=== PATIENT | male | born 1970 | race Caucasian/White ===

== ENCOUNTER 2017-09-16 18:06 | Emergency (ER) | payer OTHER ==
[~2017-09-16] VITALS: Ht 160 cm; Wt 49.9 kg
[~2017-09-16 18:06] MED LIST: Augmentin 875-1 EACH PO; CIPR500 PO; CODACE15 PO; CYCL10 PO; DOXY100 PO; ENOX30I SC; HYDACE5 PO; IBUP800 PO; Lotrimin Ultra12 GM TP; MUPI1NAS; OXYACE5T PO; Prednisone20 MG PO; ROXICODONE5 MG PO; RXOXYACE PO; RXSULTRIDS PO; SENN187 PO; Zithromax250 MG PO; [UNRECOGNIZED DRUG - CODE] TOP
[2017-09-16 19:19] LABS: Source, Urine Clean Catch
[2017-09-16 19:21] LABS: Bilirubin, Urine Neg (Neg); Blood, Urine 1+ (Neg); Glucose Qualitative, Urine Neg (Neg); Ketones, Urine Neg (Neg); Leukocyte Esterase, Urine 3+ (Neg); Nitrite, Urine Pos (Neg); Protein, Urine Neg (Neg); Specific Gravity, Urine 1.015 (1.003-1.022); Urobilinogen, Urine NORM (Normal)
[2017-09-16 19:27] LABS: Appearance, Urine Clear (Clear); Color, Urine Yellow (P-Yellow)
[2017-09-16 19:29] LABS: Bacteria Many /hpf; Squamous Epithelial Cells Few /hpf (Few)
[2017-09-16] MEDS ORDERED: Bactrim Ds Tab1 EACH PO (19:48)
== END 2017-09-16 20:11 | disposition home or self-care (01) ==
LOC: ER 18:06
PROVIDERS: Physician Assistant
DX: N39.0 Urinary tract infection, site not specified (principal); M25.552 Pain in left hip; Z88.5 Allergy status to narcotic agent; Z79.2 Long term (current) use of antibiotics; Z87.891 Personal history of nicotine dependence
CPT/HCPCS: 81001; 87077; 87086; 87186; 96372; 99283; J1885

== ENCOUNTER 2018-10-23 17:46 | Emergency (ER) | payer OTHER ==
[~2018-10-23] VITALS: Ht 160 cm; Wt 54.4 kg
[~2018-10-23 17:46] MED LIST changes: +Bactrim Ds Tab1 EACH PO
[2018-10-23] MEDS ORDERED: Zofran8 MG PO (18:16)
== END 2018-10-23 18:35 | disposition home or self-care (01) ==
LOC: ER 17:46
DX: T52.0X1A Toxic effect of petroleum products, accidental (unintentional), initial encounter (principal); Z87.891 Personal history of nicotine dependence
CPT/HCPCS: 99284

== ENCOUNTER 2018-11-09 10:38 | Emergency (ER) | payer OTHER ==
[~2018-11-09] VITALS: Ht 172.7 cm; Wt 63.5 kg
[~2018-11-09 10:38] MED LIST changes: +Zofran8 MG PO
[2018-11-09 11:31] LABS: Source, Urine Clean Catch
[2018-11-09 11:36] LABS: Bilirubin, Urine Neg (Neg); Blood, Urine Neg (Neg); Glucose Qualitative, Urine Neg (Neg); Ketones, Urine Neg (Neg); Leukocyte Esterase, Urine 2+ (Neg); Nitrite, Urine Neg (Neg); Protein, Urine Neg (Neg); Urobilinogen, Urine NORM (Normal); pH, Urine 6.5 (5.0-8.0)
[2018-11-09 11:38] LABS: Appearance, Urine Clear (Clear); Color, Urine Yellow (P-Yellow)
[2018-11-09 11:42] LABS: Red Blood Cells, Urine Not Seen /hpf (0-2)
[2018-11-09 11:43] LABS: Squamous Epithelial Cells Few /hpf (Few)
[2018-11-09 11:44] LABS: Bacteria Few /hpf
[2018-11-09] MEDS ORDERED: CYCL10 PO (12:47)
[2018-11-09] MEDS ORDERED: Naprosyn500 MG PO (12:47)
[2018-11-09] MEDS ORDERED: Norco 7.5-3251 EACH PO (12:47)
== END 2018-11-09 13:15 | disposition home or self-care (01) ==
LOC: ER 10:38
PROVIDERS: Internal Medicine
DX: S39.012A Strain of muscle, fascia and tendon of lower back, initial encounter (principal); X58.XXXA Exposure to other specified factors, initial encounter; Z88.5 Allergy status to narcotic agent; Z87.891 Personal history of nicotine dependence
CPT/HCPCS: 81001; 87086; 96374; 96375; 96376; 99283-25; J1170; J1885; J2405

== ENCOUNTER 2019-10-11 17:52 | Inpatient (IN) | payer OTHER ==
[~2019-10-11] VITALS: Ht 160 cm; Wt 51.4 kg
[~2019-10-11 17:52] MED LIST changes: +Naprosyn500 MG PO; +Norco 7.5-3251 EACH PO
[2019-10-11 18:31] LABS: BASOPHILS ABSOLUTE AUTO 0.07 K/mm3 (0.00-0.23); BASOPHILS PERCENT AUTO 1 % (0-2); EOSINOPHILS PERCENT AUTO 5 % (0-6); Hematocrit 46.5 % (37.0-53.0); Hemoglobin 15.7 g/dL (13.5-17.5); IMMATURE GRAN ABSOLUTE AUTO 0.01 K/mm3 (0.00-0.10); IMMATURE GRAN PERCENT AUTO 0 % (0-1); LYMPHOCYTES ABSOLUTE AUTO 1.45 K/mm3 (0.84-5.20); LYMPHOCYTES PERCENT AUTO 18 % (21-46); MONOCYTES ABSOLUTE AUTO 0.74 K/mm3 (0.16-1.47); MONOCYTES PERCENT AUTO 9 % (4-13); Mean Corpuscular HGB Conc 33.8 g/dL (31.5-36.5); Mean Corpuscular Volume 92 fL (80-100); NEUTROPHILS ABSOLUTE AUTO 5.28 K/mm3 (1.96-9.15); NEUTROPHILS PERCENT AUTO 67 % (41-73); Platelet Count 257 K/mm3 (150-400); RDW Coefficient Variation 12.4 % (11.7-14.2); RDW Standard Deviation 42.2 fL (35.1-46.3); Red Blood Cell Count 5.06 M/mm3 (4.30-5.90); White Blood Cell Count 7.95 K/mm3 (4.00-11.30)
[2019-10-11 18:54] LABS: Alanine Aminotransfer (ALT/SGP 60 U/L (12-78); Albumin, Blood 4.3 g/dL (3.4-5.0); Albumin/Globulin Ratio 1.2 (0.8-1.8); Alk Phos 59 U/L (50-136); Anion Gap 2 mmol/L (6-16); Aspartate Aminotrans (AST/SGOT 34 U/L (12-37); Bilirubin, Total 0.6 mg/dL (0.1-1.0); Blood Urea Nitrogen 25 mg/dL (8-24); Bun/Creatinine Ratio 23.6 (12.0-20.0); CO2, Blood 26 mmol/L (21-32); Chloride, Blood 107 mmol/L (98-108); Creatinine, Blood 1.06 mg/dL (0.60-1.20); Globulin, Blood 3.6 g/dL (2.2-4.0); Glomerular Filtration Rate >60 (60-); Glucose, Blood 95 mg/dL (70-99); Potassium, Blood 4.2 mmol/L (3.5-5.5); Sodium, Blood 135 mmol/L (136-145); Total Protein, Blood 7.9 g/dL (6.4-8.2)
[2019-10-11 20:02] LABS: Source, Urine Clean Catch
[2019-10-11 20:06] LABS: Bilirubin, Urine Neg (Neg); Blood, Urine Neg (Neg); Glucose Qualitative, Urine Neg (Neg); Ketones, Urine Neg (Neg); Leukocyte Esterase, Urine Neg (Neg); Nitrite, Urine Neg (Neg); Protein, Urine Neg (Neg); Urobilinogen, Urine NORM (Normal)
[2019-10-11 20:12] LABS: Appearance, Urine Clear (Clear); Color, Urine Yellow (P-Yellow)
[2019-10-11 21:11] LABS: Triglycerides 105 mg/dL (30-160)
[2019-10-11 21:14] LABS: Ethanol (Alcohol), Blood, Med <3 mg/dL; Magnesium, Blood 2.4 mg/dL (1.6-2.4)
[2019-10-12 02:59] LABS: U Amphetamine Screen Not Detected; U Barbituate Screen Not Detected; U Benzodiazapine Screen Not Detected; U Buprenorphine Screen Not Detected; U Cannabinoids Screen Not Detected; U Cocaine Screen Not Detected; U Methadone Screen Not Detected; U Methamphetamine Screen Not Detected; U Opiates Screen DETECTED; U Oxycodone Screen Not Detected; U Phencyclidine Screen Not Detected; U Propoxyphene Screen Not Detected
[2019-10-12 05:00] LABS: Hematocrit 43.2 % (37.0-53.0); Hemoglobin 14.7 g/dL (13.5-17.5); Mean Corpuscular HGB 31.4 pg (26.0-34.0); Mean Corpuscular Volume 92 fL (80-100); Mean Platelet Volume 9.2 fL (9.1-12.4); Platelet Count 209 K/mm3 (150-400); RDW Coefficient Variation 12.4 % (11.7-14.2); RDW Standard Deviation 42.6 fL (35.1-46.3); Red Blood Cell Count 4.68 M/mm3 (4.30-5.90); White Blood Cell Count 6.67 K/mm3 (4.00-11.30)
[2019-10-12 05:22] LABS: Alanine Aminotransfer (ALT/SGP 50 U/L (12-78); Albumin, Blood 3.5 g/dL (3.4-5.0); Albumin/Globulin Ratio 1.1 (0.8-1.8); Alk Phos 49 U/L (50-136); Anion Gap 7 mmol/L (6-16); Aspartate Aminotrans (AST/SGOT 26 U/L (12-37); Bilirubin, Total 0.7 mg/dL (0.1-1.0); Blood Urea Nitrogen 18 mg/dL (8-24); Bun/Creatinine Ratio 18.8 (12.0-20.0); CO2, Blood 24 mmol/L (21-32); Chloride, Blood 109 mmol/L (98-108); Creatinine, Blood 0.96 mg/dL (0.60-1.20); Globulin, Blood 3.1 g/dL (2.2-4.0); Glomerular Filtration Rate >60 (60-); Glucose, Blood 90 mg/dL (70-99); Sodium, Blood 140 mmol/L (136-145); Total Protein, Blood 6.6 g/dL (6.4-8.2)
--- NOTE | 2019-10-12 06:03 | NUR ---
SHIFT SUMMARY- NEW ADMIT FROM ED. PT. A&O, SBA. ACUTE PANCREATITIS DX'S. PT. C/O ABD PAIN, MEDICATED T/O SHIFT WITH MINIMAL RELIEF. PT. ON CONT BIOX. HEART RHYTHM CHRISTIE. PT. SLEPT ON/OFF DURING THE NIGHT. NO APPARENT DISTRESS NOTED. CALL LIGHT WITHIN REACH AND SIDE RAILS UP X2. WILL CONT TO MONITOR.
--- NOTE | 2019-10-12 07:16 | NUR ---
PATIENT DID NOT EAT BREAKFAST THIS SHIFT DUE TO BEING NPO AT THIS TIME.
--- NOTE | 2019-10-12 12:49 | NUR ---
PATIENT DID NOT EAT LUNCH THIS SHIFT DUE TO BEING NPO AT THIS TIME.
--- NOTE | 2019-10-12 18:31 | NUR ---
PATIENT DID NOT EAT DINNER THIS SHIFT DUE TO BEING NPO AT THIS TIME.
--- NOTE | 2019-10-12 19:05 | NUR ---
SHIFT SUMMARY. A&OX4, SBA TO BATHRROM. PT IS PLEASANT AND COOPERATIVE. PT DENIES N/V, SOB. PT REPORTS MID ABD PAIN, PT REPORTS PAIN HAS IMPROVED THIS EVENING WHEN COMPARED TO LAST NIGHT. PT REQUIRED PAIN MEDICATION ONCE THIS SHIFT. CONTINUES WITH IV FLUIDS, TOLERATING ICE CHIPS WITHOUT ISSUE. NO NEW CHANGES OR CONCERNS.
--- NOTE | 2019-10-13 05:34 | NUR ---
SHIFT SUMMARY- PT. HAD A RESTFUL NIGHT. NO APPARENT DISTRESS NOTED. REPORTED ABD PAIN 1X, MEDICATED PER EMAR WITH GOOD EFFECT. PT. RESTING HR IN THE LOW 40'S LAST NIGHT, PT. ASYPTOMATIC AND BP WNL. PROVIDER PATO MARTIN NOTIFIED. ORDER FOR 12 LEAD EKG OBTAINED. PER HOSPITALIST INSTRUCTED TO CONT TO MONITOR IF SINUS. RESULTS OF EKG SINUS CHRISTIE. CONTINOUS BIOX REMAINS IN PLACE. PT. REPORTS APPETITE RETURNING, DENIED ANY OTHER NEEDS DURING THE NIGHT. PT. APPEARED TO HAVE RESTED COMFORTABLY IN BED. IV FLUIDS INFUSING. CALL LIGHT WITHIN REACH AND SIDE RAILS UP X2. WILL CONT TO MONITOR.
--- NOTE | 2019-10-13 18:45 | NUR ---
SHIFT SUMMARY. PT REPORTS PAIN IS MORE MILD THIS AM, PT DID REPORT INCREASED PAIN WITH LUNCH AND HE RECOGNIZED TO SLOW DOWN WITH MEAL. WEARING APPAREL SHAKER CONSULTED TODAY FOR EDUCATON. FULL LIQUID DIET STARTED THIS AM. PT MEDICATED FOR PAIN WITH GOOD EFFECT. NO N/V, SOB. NO OTHER CHANGES OR CONCERNS.
--- NOTE | 2019-10-14 05:57 | NUR ---
SHIFT SUMMARY- PT. PLEASANT AND COOPERTIVE WITH CARE. RESTED COMFORTABLY T/O THE NIGHT. NO APPARENT DISTRESS NOTED. PT. TOLERATING FULL LIQUID DIET AND ABD PAIN IMPROVING. DENIED ANY NEEDS T/O THE SHIFT. CALL LIGHT WITHIN REACH AND SIDE RAILS UP X2. WILL CONT TO MONITOR.
[2019-10-14] MEDS ORDERED: TRAM50 PO (10:15)
[2019-10-14] MEDS ORDERED: ONDA4ODT MM (10:15)
--- NOTE | 2019-10-14 13:43 | NUR ---
SUMMARY/DISCHARGE PT DISCHARGED TO HOME, PT VERBALIZED UNDERSTANDING OF DISCHARGE INSTRUCTIONS REGARDING MEDS, FOLLOW UP AND DIET, PT TAKEN OUT SAFELY VIA WHEELCHAIR
== END 2019-10-14 12:59 | disposition home or self-care (01) | DRG 440 ==
LOC: ER 17:52 → MEDS 22:35 → ENPENDDIS 10-14 10:00 → MEDS 10-14 12:59
PROVIDERS: Emergency Medicine; Nurse Practitioner Acute Care; ADMIT Internal Medicine
DX: K85.90 Acute pancreatitis without necrosis or infection, unspecified (principal); Z96.642 Presence of left artificial hip joint; Z87.891 Personal history of nicotine dependence; G40.909 Epilepsy, unspecified, not intractable, without status epilepticus; F10.20 Alcohol dependence, uncomplicated; K29.80 Duodenitis without bleeding; Y90.0 Blood alcohol level of less than 20 mg/100 ml
CPT/HCPCS: 36415; 74176; 80053; 81003; 83690; 83735; 84478; 85025; 85027; 93005; 93010; 94762; 96374; 96375; 99285-25; C9113; G0480; J1170; J1650; J2405; J3010; J7030; J7120

== ENCOUNTER 2020-05-07 19:00 | Emergency (ER) | payer OTHER ==
[~2020-05-07] VITALS: Ht 162.6 cm; Wt 54.4 kg
[~2020-05-07 19:00] MED LIST changes: +ONDA4ODT MM; +TRAM50 PO
[2020-05-07 19:36] LABS: BASOPHILS ABSOLUTE AUTO 0.07 K/mm3 (0.00-0.23); BASOPHILS PERCENT AUTO 1 % (0-2); EOSINOPHILS ABSOLUTE AUTO 0.33 K/mm3 (0.00-0.68); EOSINOPHILS PERCENT AUTO 6 % (0-6); Hematocrit 46.8 % (37.0-53.0); Hemoglobin 15.8 g/dL (13.5-17.5); IMMATURE GRAN ABSOLUTE AUTO 0.01 K/mm3 (0.00-0.10); IMMATURE GRAN PERCENT AUTO 0 % (0-1); LYMPHOCYTES ABSOLUTE AUTO 1.93 K/mm3 (0.84-5.20); LYMPHOCYTES PERCENT AUTO 37 % (21-46); MONOCYTES ABSOLUTE AUTO 0.64 K/mm3 (0.16-1.47); MONOCYTES PERCENT AUTO 12 % (4-13); Mean Corpuscular HGB 30.8 pg (26.0-34.0); Mean Corpuscular HGB Conc 33.8 g/dL (31.5-36.5); Mean Corpuscular Volume 91 fL (80-100); Mean Platelet Volume 8.8 fL (9.1-12.4); NEUTROPHILS ABSOLUTE AUTO 2.29 K/mm3 (1.96-9.15); NEUTROPHILS PERCENT AUTO 44 % (41-73); Platelet Count 270 K/mm3 (150-400); RDW Coefficient Variation 11.7 % (11.7-14.2); RDW Standard Deviation 39.3 fL (35.1-46.3); Red Blood Cell Count 5.13 M/mm3 (4.30-5.90); White Blood Cell Count 5.27 K/mm3 (4.00-11.30)
[2020-05-07 19:51] LABS: Alanine Aminotransfer (ALT/SGP 37 U/L (12-78); Albumin, Blood 4.1 g/dL (3.4-5.0); Albumin/Globulin Ratio 1.2 (0.8-1.8); Alk Phos 70 U/L (50-136); Anion Gap 5 mmol/L (6-16); Aspartate Aminotrans (AST/SGOT 22 U/L (12-37); Bilirubin, Total 0.6 mg/dL (0.1-1.0); Blood Urea Nitrogen 19 mg/dL (8-24); Bun/Creatinine Ratio 16.8 (12.0-20.0); CO2, Blood 29 mmol/L (21-32); Calcium, Blood 9.1 mg/dL (8.5-10.1); Chloride, Blood 106 mmol/L (98-108); Creatinine, Blood 1.13 mg/dL (0.60-1.20); Globulin, Blood 3.5 g/dL (2.2-4.0); Glomerular Filtration Rate >60 (60-); Glucose, Blood 85 mg/dL (70-99); Potassium, Blood 3.8 mmol/L (3.5-5.5); Sodium, Blood 140 mmol/L (136-145); Total Protein, Blood 7.6 g/dL (6.4-8.2); Troponin I <0.015 ng/mL (0.000-0.040)
[2020-05-07 20:52] LABS: Influenza A, PCR Negative (NEGATIVE); Influenza B, PCR Negative (NEGATIVE); Resp Syncytial Virus, PCR Negative (NEGATIVE); SARS-Cov-2 (COVID-19) PCR, MMC Negative (NEGATIVE)
== END 2020-05-07 22:03 | disposition home or self-care (01) ==
LOC: ER 19:00
PROVIDERS: Emergency Medicine
DX: J06.9 Acute upper respiratory infection, unspecified (principal); N18.9 Chronic kidney disease, unspecified; Z20.828 Contact with and (suspected) exposure to other viral communicable diseases; Z88.5 Allergy status to narcotic agent; Z87.891 Personal history of nicotine dependence
CPT/HCPCS: 0241U; 36415; 71045; 80053; 83735; 84145; 84484; 85025; 93005; 93010; 99284-25

== ENCOUNTER 2020-07-04 12:48 | Emergency (ER) | payer OTHER ==
[~2020-07-04] VITALS: Ht 160 cm; Wt 52.2 kg
[2020-07-04 13:19] LABS: BASOPHILS ABSOLUTE AUTO 0.06 K/mm3 (0.00-0.23); BASOPHILS PERCENT AUTO 1 % (0-2); EOSINOPHILS ABSOLUTE AUTO 0.22 K/mm3 (0.00-0.68); EOSINOPHILS PERCENT AUTO 5 % (0-6); Hemoglobin 16.2 g/dL (13.5-17.5); IMMATURE GRAN ABSOLUTE AUTO 0.03 K/mm3 (0.00-0.10); IMMATURE GRAN PERCENT AUTO 1 % (0-1); LYMPHOCYTES ABSOLUTE AUTO 1.16 K/mm3 (0.84-5.20); LYMPHOCYTES PERCENT AUTO 25 % (21-46); MONOCYTES ABSOLUTE AUTO 0.56 K/mm3 (0.16-1.47); MONOCYTES PERCENT AUTO 12 % (4-13); Mean Corpuscular HGB 30.5 pg (26.0-34.0); Mean Corpuscular HGB Conc 33.8 g/dL (31.5-36.5); Mean Corpuscular Volume 90 fL (80-100); Mean Platelet Volume 8.9 fL (9.1-12.4); NEUTROPHILS ABSOLUTE AUTO 2.56 K/mm3 (1.96-9.15); NEUTROPHILS PERCENT AUTO 56 % (41-73); Platelet Count 269 K/mm3 (150-400); RDW Coefficient Variation 11.9 % (11.7-14.2); RDW Standard Deviation 39.5 fL (35.1-46.3); Red Blood Cell Count 5.31 M/mm3 (4.30-5.90); White Blood Cell Count 4.59 K/mm3 (4.00-11.30)
[2020-07-04 13:38] LABS: Alanine Aminotransfer (ALT/SGP 49 U/L (12-78); Albumin, Blood 4.3 g/dL (3.4-5.0); Albumin/Globulin Ratio 1.2 (0.8-1.8); Alk Phos 58 U/L (50-136); Anion Gap 11 mmol/L (6-16); Aspartate Aminotrans (AST/SGOT 22 U/L (12-37); Bilirubin, Total 0.7 mg/dL (0.1-1.0); Blood Urea Nitrogen 14 mg/dL (8-24); Bun/Creatinine Ratio 14.7 (12.0-20.0); CO2, Blood 24 mmol/L (21-32); Calcium, Blood 8.9 mg/dL (8.5-10.1); Chloride, Blood 104 mmol/L (98-108); Creatinine, Blood 0.95 mg/dL (0.60-1.20); Globulin, Blood 3.6 g/dL (2.2-4.0); Glomerular Filtration Rate >60 (60-); Glucose, Blood 101 mg/dL (70-99); Potassium, Blood 3.9 mmol/L (3.5-5.5); Sodium, Blood 139 mmol/L (136-145); Total Protein, Blood 7.9 g/dL (6.4-8.2); Troponin I <0.015 ng/mL (0.000-0.040)
[2020-08-15] MEDS ORDERED: VICODIN PO (08:48)
[2020-08-15] MEDS ORDERED: ONDA4 PO (08:49)
[2021-01-03] MEDS ORDERED: METO10 PO (21:08)
[2021-01-03] MEDS ORDERED: AMOCLA875 PO (21:08)
== END 2020-07-04 15:38 | disposition home or self-care (01) ==
LOC: ER 12:48
PROVIDERS: Physician Assistant
DX: R07.89 Other chest pain (principal); Z88.5 Allergy status to narcotic agent; Z87.19 Personal history of other diseases of the digestive system
CPT/HCPCS: 71046; 80053; 83690; 84484; 85025; 93005; 93010; 96374; 99285-25; J1885

== ENCOUNTER 2020-08-06 21:07 | Emergency (ER) | payer OTHER ==
[~2020-08-06] VITALS: Ht 162.6 cm; Wt 52.2 kg
[2020-08-06 21:39] LABS: Source, Urine Clean Catch
[2020-08-06 21:46] LABS: BASOPHILS ABSOLUTE AUTO 0.09 K/mm3 (0.00-0.23); BASOPHILS PERCENT AUTO 2 % (0-2); EOSINOPHILS ABSOLUTE AUTO 0.13 K/mm3 (0.00-0.68); EOSINOPHILS PERCENT AUTO 2 % (0-6); Hematocrit 47.6 % (37.0-53.0); Hemoglobin 16.4 g/dL (13.5-17.5); IMMATURE GRAN ABSOLUTE AUTO 0.03 K/mm3 (0.00-0.10); IMMATURE GRAN PERCENT AUTO 1 % (0-1); LYMPHOCYTES ABSOLUTE AUTO 1.48 K/mm3 (0.84-5.20); LYMPHOCYTES PERCENT AUTO 25 % (21-46); MONOCYTES ABSOLUTE AUTO 0.71 K/mm3 (0.16-1.47); MONOCYTES PERCENT AUTO 12 % (4-13); Mean Corpuscular HGB 30.9 pg (26.0-34.0); Mean Corpuscular HGB Conc 34.5 g/dL (31.5-36.5); Mean Corpuscular Volume 90 fL (80-100); Mean Platelet Volume 8.9 fL (9.1-12.4); NEUTROPHILS ABSOLUTE AUTO 3.54 K/mm3 (1.96-9.15); NEUTROPHILS PERCENT AUTO 59 % (41-73); Platelet Count 299 K/mm3 (150-400); RDW Coefficient Variation 11.8 % (11.7-14.2); RDW Standard Deviation 38.9 fL (35.1-46.3); Red Blood Cell Count 5.31 M/mm3 (4.30-5.90); White Blood Cell Count 5.98 K/mm3 (4.00-11.30)
[2020-08-06 21:47] LABS: Bilirubin, Urine Neg (Neg); Blood, Urine Neg (Neg); Glucose Qualitative, Urine Neg (Neg); Ketones, Urine Neg (Neg); Leukocyte Esterase, Urine 1+ (Neg); Nitrite, Urine Neg (Neg); Protein, Urine Neg (Neg); Urobilinogen, Urine NORM (Normal)
[2020-08-06 21:48] LABS: Appearance, Urine Clear (Clear); Color, Urine Yellow (P-Yellow)
[2020-08-06 22:00] LABS: Red Blood Cells, Urine 0-2 /hpf (0-2); Squamous Epithelial Cells Not Seen /hpf (Few)
[2020-08-06 22:01] LABS: Alanine Aminotransfer (ALT/SGP 61 U/L (12-78); Albumin, Blood 4.5 g/dL (3.4-5.0); Albumin/Globulin Ratio 1.2 (0.8-1.8); Alk Phos 61 U/L (50-136); Anion Gap 8 mmol/L (6-16); Aspartate Aminotrans (AST/SGOT 22 U/L (12-37); Bacteria Many /hpf; Bilirubin, Total 0.5 mg/dL (0.1-1.0); Blood Urea Nitrogen 18 mg/dL (8-24); Bun/Creatinine Ratio 15.8 (12.0-20.0); CO2, Blood 27 mmol/L (21-32); Calcium, Blood 9.9 mg/dL (8.5-10.1); Chloride, Blood 105 mmol/L (98-108); Creatinine, Blood 1.14 mg/dL (0.60-1.20); Globulin, Blood 3.8 g/dL (2.2-4.0); Glomerular Filtration Rate >60 (60-); Glucose, Blood 99 mg/dL (70-99); Potassium, Blood 4.2 mmol/L (3.5-5.5); Sodium, Blood 140 mmol/L (136-145); Total Protein, Blood 8.3 g/dL (6.4-8.2)
[2020-08-06 22:22] LABS: Ethanol (Alcohol), Blood, Med <3 mg/dL
[2020-08-15] MEDS ORDERED: VICODIN PO (08:48)
[2020-08-15] MEDS ORDERED: ONDA4 PO (08:49)
[2021-01-03] MEDS ORDERED: METO10 PO (21:08)
[2021-01-03] MEDS ORDERED: AMOCLA875 PO (21:08)
== END 2020-08-06 23:19 | disposition home or self-care (01) ==
LOC: ER 21:07
PROVIDERS: Physician Assistant
DX: R10.9 Unspecified abdominal pain (principal); Z88.5 Allergy status to narcotic agent; Z87.891 Personal history of nicotine dependence
CPT/HCPCS: 36415; 74176; 80053; 81001; 83690; 85025; 87077; 87086; 87186; 96361; 96374; 96375; 99284-25; A9270; G0480; J1170; J2405; J7030

== ENCOUNTER 2020-08-22 06:48 | Day surgery (SDC) | payer OTHER ==
[~2020-08-22] VITALS: Ht 160 cm; Wt 53.3 kg
[~2020-08-22 06:48] MED LIST changes: +ONDA4 PO; +VICODIN PO
[2020-08-22] MEDS ORDERED: OMEP20ER PO (07:11)
[2021-01-03] MEDS ORDERED: AMOCLA875 PO (21:08)
[2021-01-03] MEDS ORDERED: METO10 PO (21:08)
== END 2020-08-22 08:28 | disposition home or self-care (01) ==
LOC: ORSCSDS 06:48
PROVIDERS: Student in an Organized Health Care Education/Training Program
PROC: 0DB68ZX Excision of Stomach, Via Natural or Artificial Opening Endoscopic, Diagnostic (ICD-10-PCS; principal; 2020-08-22 08:00)
PROC: 0DB48ZX Excision of Esophagogastric Junction, Via Natural or Artificial Opening Endoscopic, Diagnostic (ICD-10-PCS; principal; 2020-08-22 08:00)
DX: R10.13 Epigastric pain (principal); R19.7 Diarrhea, unspecified; R56.9 Unspecified convulsions; E78.5 Hyperlipidemia, unspecified; Z87.891 Personal history of nicotine dependence; Z79.899 Other long term (current) drug therapy
CPT/HCPCS: 88305; 88342; J0330; J0461; J2405; J2704; J7120

== ENCOUNTER 2021-01-01 18:51 | Emergency (ER) | payer OTHER ==
[~2021-01-01] VITALS: Ht 160 cm; Wt 52.2 kg
[~2021-01-01 18:51] MED LIST changes: +OMEP20ER PO
[2021-01-01 19:42] LABS: BASOPHILS ABSOLUTE AUTO 0.02 K/mm3 (0.00-0.23); BASOPHILS PERCENT AUTO 1 % (0-2); EOSINOPHILS ABSOLUTE AUTO 0.08 K/mm3 (0.00-0.68); EOSINOPHILS PERCENT AUTO 3 % (0-6); Hematocrit 49.4 % (37.0-53.0); Hemoglobin 16.8 g/dL (13.5-17.5); IMMATURE GRAN ABSOLUTE AUTO 0.01 K/mm3 (0.00-0.10); IMMATURE GRAN PERCENT AUTO 0 % (0-1); LYMPHOCYTES ABSOLUTE AUTO 0.73 K/mm3 (0.84-5.20); LYMPHOCYTES PERCENT AUTO 23 % (21-46); MONOCYTES ABSOLUTE AUTO 0.49 K/mm3 (0.16-1.47); MONOCYTES PERCENT AUTO 16 % (4-13); Mean Corpuscular HGB 30.9 pg (26.0-34.0); Mean Corpuscular Volume 91 fL (80-100); Mean Platelet Volume 8.8 fL (9.1-12.4); NEUTROPHILS ABSOLUTE AUTO 1.84 K/mm3 (1.96-9.15); NEUTROPHILS PERCENT AUTO 58 % (41-73); Platelet Count 204 K/mm3 (150-400); RDW Coefficient Variation 12.1 % (11.7-14.2); RDW Standard Deviation 40.7 fL (35.1-46.3); Red Blood Cell Count 5.44 M/mm3 (4.30-5.90); White Blood Cell Count 3.17 K/mm3 (4.00-11.30)
[2021-01-01 19:45] LABS: Source, Urine Clean Catch
[2021-01-01 19:52] LABS: Albumin/Globulin Ratio 0.9 (0.8-1.8); Bilirubin, Total 0.7 mg/dL (0.1-1.0); Bun/Creatinine Ratio 12.4 (12.0-20.0); Calcium, Blood 9.2 mg/dL (8.5-10.1); Creatinine, Blood 1.29 mg/dL (0.60-1.20); Globulin, Blood 4.4 g/dL (2.2-4.0); Potassium, Blood 4.1 mmol/L (3.5-5.5); Total Protein, Blood 8.4 g/dL (6.4-8.2)
[2021-01-01 19:56] LABS: Bilirubin, Urine Neg (Neg); Blood, Urine Neg (Neg); Color, Urine Yellow (P-Yellow); Glucose Qualitative, Urine Neg (Neg); Ketones, Urine 3+ (Neg); Leukocyte Esterase, Urine 2+ (Neg); Nitrite, Urine Neg (Neg); Protein, Urine 2+ (Neg); Urobilinogen, Urine NORM (Normal)
[2021-01-01 20:13] LABS: Amorphous Light (0-Heavy); Appearance, Urine Hazy (Clear); Bacteria Mod /hpf; Mucus Mod (0-Heavy); Red Blood Cells, Urine Not Seen /hpf (0-2); Squamous Epithelial Cells Rare /hpf (Few)
[2021-01-01] MEDS ORDERED: TRIDERM28.4 GM TOP (20:51)
[2021-01-01] MEDS ORDERED: SUCRALFATE1 G7 PO (20:51)
[2021-01-01] MEDS ORDERED: OMEP20ER PO (20:51)
[2021-01-02] MEDS ORDERED: PROM25 PO (00:33)
[2021-01-02] MEDS ORDERED: Bactrim Ds Tab1 EACH PO (00:33)
[2021-01-03] MEDS ORDERED: AMOCLA875 PO (21:08)
[2021-01-03] MEDS ORDERED: METO10 PO (21:08)
== END 2021-01-02 01:06 | disposition home or self-care (01) ==
LOC: ER 18:51
PROVIDERS: Emergency Medicine
DX: U07.1 COVID-19 (principal); Z79.899 Other long term (current) drug therapy
CPT/HCPCS: 36415; 74177; 80053; 81001; 83690; 85025; 87077; 87086; 87186; 96374-59; 96375; 99284-25; A9270; J1170; J2405; J7030; Q9967

== ENCOUNTER 2021-01-03 17:56 | Emergency (ER) | payer OTHER | END 2021-01-03 22:05 | disposition home or self-care (01) | LOC: ER 17:56 | DX: U07.1 COVID-19 (principal); E86.0 Dehydration; N39.0 Urinary tract infection, site not specified; Z88.5 Allergy status to narcotic agent; Z79.899 Other long term (current) drug therapy ==

== ENCOUNTER 2021-05-06 10:26 | Emergency (ER) | payer OTHER ==
[~2021-05-06] VITALS: Ht 157.5 cm; Wt 68.0 kg
[~2021-05-06 10:26] MED LIST changes: +AMOCLA875 PO; +METO10 PO; +PROM25 PO; +SUCRALFATE1 G7 PO; +TRIDERM28.4 GM TOP
[2021-05-06] MEDS ORDERED: OCEAN104 ML (12:20)
[2021-05-06] MEDS ORDERED: ONDA4ODT MM (12:20)
[2021-05-06] MEDS ORDERED: Flonase 0.05% N16 GM (12:20)
== END 2021-05-06 12:38 | disposition home or self-care (01) ==
LOC: ER 10:26
DX: S10.86XA Insect bite of other specified part of neck, initial encounter (principal); J32.9 Chronic sinusitis, unspecified; B97.89 Other viral agents as the cause of diseases classified elsewhere; G40.909 Epilepsy, unspecified, not intractable, without status epilepticus; Z88.5 Allergy status to narcotic agent; Z79.899 Other long term (current) drug therapy; W57.XXXA Bitten or stung by nonvenomous insect and other nonvenomous arthropods, initial encounter
CPT/HCPCS: 99281; A9270

== ENCOUNTER 2021-07-24 20:02 | Inpatient (IN) | payer OTHER ==
[~2021-07-24] VITALS: Ht 170.2 cm; Wt 52.1 kg
[~2021-07-24 20:02] MED LIST changes: +Flonase 0.05% N16 GM; +METPRE4DP PO; +OCEAN104 ML; +Robaxin750 MG PO
[2021-07-24 20:28] LABS: BASOPHILS ABSOLUTE AUTO 0.07 K/mm3 (0.00-0.23); BASOPHILS PERCENT AUTO 1 % (0-2); EOSINOPHILS ABSOLUTE AUTO 0.26 K/mm3 (0.00-0.68); EOSINOPHILS PERCENT AUTO 4 % (0-6); Hematocrit 46.3 % (37.0-53.0); Hemoglobin 15.6 g/dL (13.5-17.5); IMMATURE GRAN ABSOLUTE AUTO 0.02 K/mm3 (0.00-0.10); IMMATURE GRAN PERCENT AUTO 0 % (0-1); LYMPHOCYTES ABSOLUTE AUTO 2.08 K/mm3 (0.84-5.20); LYMPHOCYTES PERCENT AUTO 33 % (21-46); MONOCYTES ABSOLUTE AUTO 0.64 K/mm3 (0.16-1.47); MONOCYTES PERCENT AUTO 10 % (4-13); Mean Corpuscular HGB 30.8 pg (26.0-34.0); Mean Corpuscular HGB Conc 33.7 g/dL (31.5-36.5); Mean Corpuscular Volume 91 fL (80-100); Mean Platelet Volume 8.5 fL (9.1-12.4); NEUTROPHILS PERCENT AUTO 52 % (41-73); Platelet Count 352 K/mm3 (150-400); RDW Coefficient Variation 11.9 % (11.7-14.2); RDW Standard Deviation 39.5 fL (35.1-46.3); Red Blood Cell Count 5.07 M/mm3 (4.30-5.90); White Blood Cell Count 6.37 K/mm3 (4.00-11.30)
[2021-07-24 20:47] LABS: Albumin/Globulin Ratio 1.1 (0.8-1.8); Bilirubin, Total 0.4 mg/dL (0.1-1.0); Bun/Creatinine Ratio 11.9 (12.0-20.0); Calcium, Blood 8.6 mg/dL (8.5-10.1); Creatinine, Blood 1.35 mg/dL (0.60-1.20); Globulin, Blood 3.6 g/dL (2.2-4.0); Potassium, Blood 3.5 mmol/L (3.5-5.5); Total Protein, Blood 7.6 g/dL (6.4-8.2)
[2021-07-25 06:43] LABS: U Amphetamine Screen Not Detected; U Barbituate Screen Not Detected; U Benzodiazapine Screen DETECTED; U Buprenorphine Screen Not Detected; U Cannabinoids Screen Not Detected; U Cocaine Screen Not Detected; U Methadone Screen Not Detected; U Methamphetamine Screen Not Detected; U Opiates Screen Not Detected; U Oxycodone Screen Not Detected; U Phencyclidine Screen Not Detected; U Propoxyphene Screen Not Detected
[2021-07-25 08:36] LABS: BASOPHILS ABSOLUTE AUTO 0.07 K/mm3 (0.00-0.23); BASOPHILS PERCENT AUTO 1 % (0-2); EOSINOPHILS ABSOLUTE AUTO 0.27 K/mm3 (0.00-0.68); EOSINOPHILS PERCENT AUTO 4 % (0-6); Hematocrit 40.3 % (37.0-53.0); Hemoglobin 13.5 g/dL (13.5-17.5); IMMATURE GRAN ABSOLUTE AUTO 0.03 K/mm3 (0.00-0.10); IMMATURE GRAN PERCENT AUTO 1 % (0-1); LYMPHOCYTES ABSOLUTE AUTO 1.36 K/mm3 (0.84-5.20); LYMPHOCYTES PERCENT AUTO 22 % (21-46); MONOCYTES ABSOLUTE AUTO 0.68 K/mm3 (0.16-1.47); MONOCYTES PERCENT AUTO 11 % (4-13); Mean Corpuscular HGB 31.2 pg (26.0-34.0); Mean Corpuscular HGB Conc 33.5 g/dL (31.5-36.5); Mean Corpuscular Volume 93 fL (80-100); Mean Platelet Volume 8.9 fL (9.1-12.4); NEUTROPHILS ABSOLUTE AUTO 3.84 K/mm3 (1.96-9.15); NEUTROPHILS PERCENT AUTO 61 % (41-73); Platelet Count 284 K/mm3 (150-400); RDW Standard Deviation 41.5 fL (35.1-46.3); Red Blood Cell Count 4.33 M/mm3 (4.30-5.90); White Blood Cell Count 6.25 K/mm3 (4.00-11.30)
[2021-07-25 08:51] LABS: Alanine Aminotransfer (ALT/SGP 26 U/L (12-78); Albumin/Globulin Ratio 1.1 (0.8-1.8); Alk Phos 45 U/L (50-136); Anion Gap 4 mmol/L (6-16); Aspartate Aminotrans (AST/SGOT 11 U/L (12-37); Bilirubin, Total 0.6 mg/dL (0.1-1.0); Blood Urea Nitrogen 14 mg/dL (8-24); Bun/Creatinine Ratio 11.4 (12.0-20.0); CO2, Blood 24 mmol/L (21-32); Calcium, Blood 7.8 mg/dL (8.5-10.1); Chloride, Blood 115 mmol/L (98-108); Creatinine, Blood 1.23 mg/dL (0.60-1.20); Globulin, Blood 2.8 g/dL (2.2-4.0); Glomerular Filtration Rate >60 (60-); Glucose, Blood 94 mg/dL (70-99); Potassium, Blood 4.1 mmol/L (3.5-5.5); Sodium, Blood 143 mmol/L (136-145); Total Protein, Blood 5.8 g/dL (6.4-8.2)
--- NOTE | 2021-07-25 18:18 | NUR ---
PT SUMMARY: PT ARRIVED IN THE ROOM FROM ED THIS MORNING REPORT RECEIVED FROM ANNEL JIM, PT ALERT AND ORIENTED X3 ABLE TO CONVERSE STILL A LITTLE DROWSY FROM BENZOS GIVEN IN THE ED BUT IS ABLE TO ANSWER QUESTIONS. NO SEIZURE EPISODE NOTED THIS SHIFT PT HAS BEEN RESTING IN BED MOST OF THE SHIFT, ATE MEALS WITH NO ISSUES. EEG AND MRI DONE TODAY AWAITING FOR RESULTS. VITALS HRR WAS SINUS CHRISTIE 50-60'S HRR AND BP TRENDING DOWN MOSTLY WHEN THE PT IS ASLEEP, BP SYSTOLIC 70-90'S IL OF NS BOLUS WAS GIVEN PT STAYED 90-110'S ON THE SYSTOLIC AFTER THE BOLUS, PT C/O PAIN ON THE LEFT HIP WHEN MOVED PT STATED HE HAD A FALL A WEEK AGO FELL FROM THE ROOF AND WAS IN THE HOSPITAL NO INTERVENTION DONE ON THE HIP PROVIDERS ARE AWARE, ALSO HAS HAD CHEST PAIN IN THE PAST TROPONIN ORDERED AND WAS NEGATIVE, DIDNT C/O ANY CHEST PAIN FOR THE SHIFT. PT USES THE URINAL FOR VOIDING. SATS ABOVE 98% ONRA, AFEBRILE. NO OTHER ISSUES REPORTED FOR THE SHIFT, WILL REPORT TO ONCOMING SHIFT
--- NOTE | 2021-07-25 19:52 | NUR ---
1924 PATIENT SPEAKING ON PHONE WITH FAMILY WHEN THE PHONE CALL ENDED PATIENT TOOK A DRINK OF COFFEE, BEGAN COUGHING AND TELEPHONE ANSWERING SERVICE OPERATOR WENT INTO ROOM. TELEPHONE ANSWERING SERVICE OPERATOR FOUND PATIENT TO BE RIGID AND LEANING ALMOST OUT OF BED. THIS RN WENT TO GET SUCTION SET UP, MACHINE TAPER NOTIFIED AND AT BEDSIDE. PATIENT IN RIGID, MOANING STATE FOR 2-3 MINUTES WITH NOTED TREMORS IN ALL EXTREMETIES. EYES FIXED FORWARD. PT PRESENTING WITH SEIZURE LIKE SYMPTOMS. EMAR ORDER FOR 1-3MG ATIVAN FOR ETOH WITHDRAWAL SYMPTOMS PRESENT. 2MG ATIVAN GIVEN AT 1929 PER MACHINE TAPER JUAN DIEGO. SEIZURE ACTIVITY CEASED AT 1930. BP AND OTHER VITALS STABLE, CBG 92. AFTER ATIVAN GIVEN, PATIENT ABLE TO STATE WHAT BUILDING HE IS IN AND WHAT CITY HE IS IN BUT IS SLOW TO RESPOND. PATIENT ABLE TO SCAN AND FOLLOW WITH EYES. DR. EWING CALLED AND GIVEN UPDATE, ORDERS TO GIVE IV KEPPRA EARLY. REPEAT VITALS Q15 UNTIL PATIENT BACK TO BASELINE. PATIENT MENTATION IMPROVING.
--- NOTE | 2021-07-26 04:30 | NUR ---
UPDATE 2099 - DR. EWING NOTIFIED OF PATIENT'S BP TRENDING DOWN, LOW 80s SYSTOLIC. SEE FLOWSHEET. ORDER RECIEVED FOR NS @ 100 mls/hr. BP CHECKED Q1 HOUR. 0430 - CALL PLACED TO DR. EWING WITH UPDATE THAT PATIENT IS CONTINUING TO HAVE SOFT BPs T/O SHIFT WITH LOWEST SYSTOLIC MID 70s. NEW ORDER RECIEVED FOR NS @ 150 mls/hr. NO CHANGES IN PATIENT'S MENTATION. PATIENT IS SLEEPY BUT WAKES TO VERBAL STIMULI AND CAN ANSWER QUESTIONS APPROPRIATLEY.
[2021-07-26 06:09] LABS: Alanine Aminotransfer (ALT/SGP 28 U/L (12-78); Albumin, Blood 3.2 g/dL (3.4-5.0); Albumin/Globulin Ratio 1.2 (0.8-1.8); Alk Phos 46 U/L (50-136); Anion Gap 5 mmol/L (6-16); Aspartate Aminotrans (AST/SGOT 12 U/L (12-37); Bilirubin, Total 0.8 mg/dL (0.1-1.0); Blood Urea Nitrogen 12 mg/dL (8-24); Bun/Creatinine Ratio 10.2 (12.0-20.0); CO2, Blood 25 mmol/L (21-32); Calcium, Blood 8.3 mg/dL (8.5-10.1); Chloride, Blood 111 mmol/L (98-108); Creatinine, Blood 1.18 mg/dL (0.60-1.20); Globulin, Blood 2.7 g/dL (2.2-4.0); Glomerular Filtration Rate >60 (60-); Glucose, Blood 95 mg/dL (70-99); Potassium, Blood 4.1 mmol/L (3.5-5.5); Sodium, Blood 141 mmol/L (136-145); Total Protein, Blood 5.9 g/dL (6.4-8.2)
--- NOTE | 2021-07-26 06:19 | NUR ---
SHIFT SUMMARY PATIENT ALERT AND ORIENTED BUT DROWSY T/O SHIFT. WAKES TO VERBAL STIMULI AND ANSWERS QUESTIONS APPROPRIATLEY. NO MORE EPISODES OF SEIZURE ACTIVITY NOTED SINCE START OF SHIFT, SEE PREVIOUS NOTE. SOFT BPs AND HR CHRISTIE FOR MAJORITY OF SHIFT WHILE PATIENT HAS BEEN SLEEPING. BP/HR DOES INCREASE WHEN PATIENT IS AWAKE. NS INFUSING, SEE PREVIOUS NOTES. MEDICATED ONCE THIS SHIFT PER [facility] PROTOCOL DUE TO PATIENT HAVING INCREASED ANXIETY, ITCHING, N/T, HEADACHE AND MILD VISUAL/AUDITORY HALLUCINATIONS. PATIENT ABLE TO USE URINAL INDEPENDENTLY. NO OTHER SIGNIFICANT CHANGES, WILL REPORT TO DAY SHIFT RN.
--- NOTE | 2021-07-26 07:41 | NUR ---
ASSUMPTION OF CARE Pt is sleeping in bed. He does arouse to his name. IV fluids infusing as ordered. Seizure pads in place. Bed alarm on for safety. Call light is in reach.
[2021-07-26] MEDS ORDERED: ONE DAILY MUL400 MCG PO ×2 (14:03)
[2021-07-26] MEDS ORDERED: LEVE500 PO ×2 (14:03)
[2021-07-26] MEDS ORDERED: B-1100 M1 PO ×2 (14:07)
--- NOTE | 2021-07-26 15:50 | NUR ---
SHIFT SUMMARY Pt is a/o x 4 and has been napping throughout the day but has been pleasant and cooperative. He has had no seizure activity all day. His IV keppra infused as ordered. He has been dcd home. His meds were called into [facility] per his request by the charge nurse. His brother in law picked him up to take him home. His IVs were removed with no issue and he packed his personal items. He was stable upon DC.
== END 2021-07-26 15:46 | disposition home or self-care (01) | DRG 897 ==
LOC: ER 20:02 → ERHOLD 20:23 → PCU 07-25 08:51
PROVIDERS: Emergency Medicine; Student in an Organized Health Care Education/Training Program; ADMIT Internal Medicine
PROC: HZ2ZZZZ Detoxification Services for Substance Abuse Treatment (ICD-10-PCS; principal; 2021-07-25)
DX: F10.239 Alcohol dependence with withdrawal, unspecified (principal); G40.409 Other generalized epilepsy and epileptic syndromes, not intractable, without status epilepticus; N18.2 Chronic kidney disease, stage 2 (mild); I95.9 Hypotension, unspecified; R07.89 Other chest pain; K21.9 Gastro-esophageal reflux disease without esophagitis; Z53.29 Procedure and treatment not carried out because of patient's decision for other reasons; Y90.6 Blood alcohol level of 120-199 mg/100 ml; Z91.14 Patient's other noncompliance with medication regimen; Z87.442 Personal history of urinary calculi; Z88.6 Allergy status to analgesic agent; Z79.899 Other long term (current) drug therapy
CPT/HCPCS: 36415; 70450; 70551; 72125; 80053; 82947; 84146; 84484; 85025; 93005; 93010; 95819; 96365; 96366; 96368; 96375; 99285-25; A9270; G0480; J1650; J1953; J2060; J3411; J3475; J7030; J7042; L0160

== ENCOUNTER 2021-07-27 23:17 | Emergency (ER) | payer OTHER ==
[~2021-07-27] VITALS: Ht 170.2 cm; Wt 56.7 kg
[~2021-07-27 23:17] MED LIST changes: +B-1100 M1 PO; +LEVE500 PO; +ONE DAILY MUL400 MCG PO
[2021-07-27 23:39] LABS: BASOPHILS ABSOLUTE AUTO 0.07 K/mm3 (0.00-0.23); BASOPHILS PERCENT AUTO 1 % (0-2); EOSINOPHILS ABSOLUTE AUTO 0.23 K/mm3 (0.00-0.68); EOSINOPHILS PERCENT AUTO 4 % (0-6); Hematocrit 46.4 % (37.0-53.0); Hemoglobin 15.7 g/dL (13.5-17.5); IMMATURE GRAN ABSOLUTE AUTO 0.01 K/mm3 (0.00-0.10); IMMATURE GRAN PERCENT AUTO 0 % (0-1); LYMPHOCYTES ABSOLUTE AUTO 1.54 K/mm3 (0.84-5.20); LYMPHOCYTES PERCENT AUTO 27 % (21-46); MONOCYTES ABSOLUTE AUTO 0.62 K/mm3 (0.16-1.47); MONOCYTES PERCENT AUTO 11 % (4-13); Mean Corpuscular HGB 31.5 pg (26.0-34.0); Mean Corpuscular HGB Conc 33.8 g/dL (31.5-36.5); Mean Corpuscular Volume 93 fL (80-100); Mean Platelet Volume 8.9 fL (9.1-12.4); NEUTROPHILS ABSOLUTE AUTO 3.26 K/mm3 (1.96-9.15); NEUTROPHILS PERCENT AUTO 57 % (41-73); Platelet Count 289 K/mm3 (150-400); RDW Coefficient Variation 11.9 % (11.7-14.2); RDW Standard Deviation 40.6 fL (35.1-46.3); Red Blood Cell Count 4.99 M/mm3 (4.30-5.90); White Blood Cell Count 5.73 K/mm3 (4.00-11.30)
[2021-07-27 23:56] LABS: Albumin/Globulin Ratio 1.2 (0.8-1.8); Bilirubin, Total 0.4 mg/dL (0.1-1.0); Bun/Creatinine Ratio 12.2 (12.0-20.0); Calcium, Blood 9.2 mg/dL (8.5-10.1); Creatinine, Blood 1.31 mg/dL (0.60-1.20); Globulin, Blood 3.4 g/dL (2.2-4.0); Potassium, Blood 3.5 mmol/L (3.5-5.5); Total Protein, Blood 7.4 g/dL (6.4-8.2)
[2021-07-28 00:11] LABS: International Normalized Ratio 0.98; Prothrombin Time Results 10.3 Sec (9.7-11.5)
== END 2021-07-28 01:51 | disposition home or self-care (01) ==
LOC: ER 23:17
PROVIDERS: Emergency Medicine
DX: F10.129 Alcohol abuse with intoxication, unspecified (principal); G40.909 Epilepsy, unspecified, not intractable, without status epilepticus; Z79.899 Other long term (current) drug therapy; Z88.5 Allergy status to narcotic agent; W01.198A Fall on same level from slipping, tripping and stumbling with subsequent striking against other object, initial encounter; Y90.6 Blood alcohol level of 120-199 mg/100 ml
CPT/HCPCS: 36415; 70450; 72125; 80053; 83605; 84484; 85025; 85610; 93005; 93010; 99284-25; A9270; G0480

== ENCOUNTER 2022-01-03 16:05 | Inpatient (IN) | payer OTHER ==
[~2022-01-03] VITALS: Ht 160 cm; Wt 47.6 kg
[2022-01-03 20:34] LABS: BASOPHILS ABSOLUTE AUTO 0.07 K/mm3 (0.00-0.23); BASOPHILS PERCENT AUTO 1 % (0-2); EOSINOPHILS ABSOLUTE AUTO 0.03 K/mm3 (0.00-0.68); EOSINOPHILS PERCENT AUTO 0 % (0-6); Hematocrit 47.3 % (37.0-53.0); Hemoglobin 16.2 g/dL (13.5-17.5); IMMATURE GRAN ABSOLUTE AUTO 0.08 K/mm3 (0.00-0.10); IMMATURE GRAN PERCENT AUTO 1 % (0-1); LYMPHOCYTES ABSOLUTE AUTO 1.63 K/mm3 (0.84-5.20); LYMPHOCYTES PERCENT AUTO 11 % (21-46); MONOCYTES ABSOLUTE AUTO 0.15 K/mm3 (0.16-1.47); MONOCYTES PERCENT AUTO 1 % (4-13); Mean Corpuscular HGB 31.3 pg (26.0-34.0); Mean Corpuscular HGB Conc 34.2 g/dL (31.5-36.5); Mean Corpuscular Volume 92 fL (80-100); Mean Platelet Volume 9.1 fL (9.1-12.4); NEUTROPHILS ABSOLUTE AUTO 12.44 K/mm3 (1.96-9.15); NEUTROPHILS PERCENT AUTO 86 % (41-73); Platelet Count 373 K/mm3 (150-400); RDW Coefficient Variation 11.8 % (11.7-14.2); RDW Standard Deviation 39.6 fL (35.1-46.3); Red Blood Cell Count 5.17 M/mm3 (4.30-5.90)
--- NOTE | 2022-01-03 20:45 | NUR ---
ADMIT RECEIVED FROM ER AT 1956. PT WAS UNRESPONSIVE TO VERBAL UPON ARRIVAL. MOVING EXTREMITIES SPORADICALLY AND TO NOXIOUS STIMULI, BUT NOT FOLLOWING ANY COMMANDS. AFTER TRANSFERRING PT FROM [facility] TO BED, PT HAD SEIZURE ACTIVITY INVOLVING ALL EXTREMITIES. PT'S JAWS WERE CLAMPED DOWN AND FACIAL COLOR WAS TURNING PURPLE. CODE BLUE CALLED. PT WITH GOOD PULSES T/O. MEDICATED WITH ETOMIDATE 15MG AT 2009 AND SUCCINYCHOLINE 150MG AT 2010. INTUBATED AT 2011- 7.5 ETT, 23CM AT GUMS. VENT SETTINGS- AC/VC 16, TV 400, PEEP 5. OG PLACED. CXR DONE TO CONFIRM ETT/OG PLACEMENT. PROPOFOL STARTED AT 2023- 60MCG/KG/MIN. MEDICATED WITH ATIVAN 4MG IV FOR VENT COMPLIANCE AND POST SEIZURE. ALSO, VERSED 2MG IV GIVEN PRIOR TO INTUBATION. BILATERAL SOFT WRIST RESTRAINTS PLACED TO PREVENT SELF-EXTUBATION. #16 ARAUJO PLACED WITHOUT DIFFICULTY AND UA SENT. HYPOSPADIAS NOTED. HIVES NOTED TO BILATERAL UPPER THIGHS. NS INFUSING AT 75CC/HR. NEW IV STARTED TO RFA. PLAN TO DO HEAD CT TONIGHT. SEE SHIFT ASSESSMENT FOR FULL ASSESSMENT.
[2022-01-03 20:51] LABS: Albumin, Blood 4.7 g/dL (3.4-5.0); Albumin/Globulin Ratio 1.3 (0.8-1.8); Bilirubin, Total 0.8 mg/dL (0.1-1.0); Bun/Creatinine Ratio 15.7 (12.0-20.0); Calcium, Blood 9.5 mg/dL (8.5-10.1); Creatinine, Blood 1.08 mg/dL (0.60-1.20); Globulin, Blood 3.6 g/dL (2.2-4.0); Magnesium, Blood 2.2 mg/dL (1.6-2.4); Potassium, Blood 3.7 mmol/L (3.5-5.5); Total Protein, Blood 8.3 g/dL (6.4-8.2)
[2022-01-03 21:05] LABS: Source, Urine Foley catheter
[2022-01-03 21:09] LABS: Bilirubin, Urine Neg (Neg); Blood, Urine 1+ (Neg); Glucose Qualitative, Urine 3+ (Neg); Ketones, Urine 1+ (Neg); Leukocyte Esterase, Urine 1+ (Neg); Nitrite, Urine Neg (Neg); Protein, Urine 1+ (Neg); Urobilinogen, Urine NORM (Normal)
[2022-01-03 21:19] LABS: Appearance, Urine Clear (Clear); Color, Urine Pale Yellow (P-Yellow)
[2022-01-03 21:24] LABS: Bacteria Many /hpf; Red Blood Cells, Urine 0-2 /hpf (0-2); Squamous Epithelial Cells Rare /hpf (Few)
--- NOTE | 2022-01-03 22:00 | NUR ---
FAMILY UPDATES SISTER, KARAN, AND SIGNIFICANT OTHER, SAMI, NOTIFIED OF EVENTS SINCE PT ARRIVED TO ICU.
[2022-01-04 02:30] LABS: U Amphetamine Screen Not Detected; U Barbituate Screen Not Detected; U Benzodiazapine Screen Not Detected; U Buprenorphine Screen Not Detected; U Cannabinoids Screen Not Detected; U Cocaine Screen Not Detected; U Methadone Screen Not Detected; U Methamphetamine Screen Not Detected; U Opiates Screen Not Detected; U Oxycodone Screen Not Detected; U Phencyclidine Screen Not Detected; U Propoxyphene Screen Not Detected
[2022-01-04 03:43] LABS: BASOPHILS ABSOLUTE AUTO 0.01 K/mm3 (0.00-0.23); BASOPHILS PERCENT AUTO 0 % (0-2); EOSINOPHILS PERCENT AUTO 0 % (0-6); Hematocrit 41.8 % (37.0-53.0); Hemoglobin 14.6 g/dL (13.5-17.5); IMMATURE GRAN ABSOLUTE AUTO 0.04 K/mm3 (0.00-0.10); IMMATURE GRAN PERCENT AUTO 1 % (0-1); LYMPHOCYTES ABSOLUTE AUTO 0.43 K/mm3 (0.84-5.20); LYMPHOCYTES PERCENT AUTO 5 % (21-46); MONOCYTES ABSOLUTE AUTO 0.09 K/mm3 (0.16-1.47); MONOCYTES PERCENT AUTO 1 % (4-13); Mean Corpuscular HGB 31.3 pg (26.0-34.0); Mean Corpuscular HGB Conc 34.9 g/dL (31.5-36.5); Mean Corpuscular Volume 90 fL (80-100); NEUTROPHILS ABSOLUTE AUTO 8.15 K/mm3 (1.96-9.15); NEUTROPHILS PERCENT AUTO 94 % (41-73); Platelet Count 252 K/mm3 (150-400); RDW Standard Deviation 39.6 fL (35.1-46.3); Red Blood Cell Count 4.66 M/mm3 (4.30-5.90); White Blood Cell Count 8.72 K/mm3 (4.00-11.30)
[2022-01-04 04:09] LABS: Albumin, Blood 3.9 g/dL (3.4-5.0); Albumin/Globulin Ratio 1.3 (0.8-1.8); Bilirubin, Total 1.1 mg/dL (0.1-1.0); Bun/Creatinine Ratio 21.2 (12.0-20.0); Calcium, Blood 8.8 mg/dL (8.5-10.1); Creatinine, Blood 1.04 mg/dL (0.60-1.20); Total Protein, Blood 6.9 g/dL (6.4-8.2)
--- NOTE | 2022-01-04 06:14 | NUR ---
SHIFT SUMMARY NO ACUTE CHANGES SINCE ADMIT. REMAINS INTUBATED- AC/VC 16/400/5/25%. rr 16-20S. SATS STABLE. SEDATED WITH PROPOFOL BETWEEN 45-60MCG/KG/MIN. NOW INFUSING AT 45MCG/KG/MIN. MEDICATED WITH ATIVAN 4MG IV X 1 DOSE FOR SEIZURE ACTIVITY EARLIER. MOVES ALL EXTREMITIES. SQUEEZED RIGHT HAND TO COMMAND ONCE THIS AM, OTHERWISE HAS NOT FOLLOWED ANY COMMANDS. PHU. NO FURTHER SEIZURE ACTIVITY DURING NOC. OG TO LIS WITH SCANT DRAINAGE. RAAUJO PATENT AND DRAINING TO GRAVITY- SEDIMENT NOTED IN TUBING THIS AM. NS INFUSING AT 75CC/HR PER ORDER. HEAD CT DONE. WILL REPORT TO ONCOMING RN WHEN AVAILABLE.
--- NOTE | 2022-01-04 07:32 | NUR ---
[place] of Care; Car assumed at 0700hr. Patient intubated and sedated with propofol gtt at 45mcg/kg/min. Patient appears calm and comfortable. Not following any commands but responds to noxious stimuli, moves all extremities. Vent to AC- 16/400/25/5, tolerate vent without difficulty. Peripheral IV's x2 patent and intact. Damian cath patent and intact, draining yellow cloudy urine. Maintenance fluids at 75ml/hr, will discuss giving additional fluids with Dr. Mercado this morning. Bilateral soft wrist restraints in place to protect lines, tubes, cords. Will continue to monitor.
--- NOTE | 2022-01-04 18:17 | NUR ---
Shift Summary: No significant changes throughout shift. Remains intubated and sedated. Propofol gtt decreased to 30mcg/kg/min throughout shift. Patient appears calm and comfortable. Attempting to open eyes to verbal stimuli, not following any other commands. Moves all extremities to stimuli. Dr. Mercado to bedside this morning. Discussed plan to leave patient intubated until tomorrow r/t concern for seizure activity (patient showed myoclonic jerking when Dr. Mercado at bedside, no other seizure activity noted). VS remain stable throughout shift. Damian remains patent and intact. Will continue to monitor until report to NOC shift RN.
--- NOTE | 2022-01-05 05:57 | NUR ---
Shift Summary: No significant changes throughout shift. Remains intubated and sedated. Propofol gtt increased to 45mcg/kg/min because of agitation. Patient appears calm and comfortable at current infussion rate. not following any commands but SHAVER to stimuli. no seizure activity noted. VS remain stable throughout shift. Damian remains patent and intact. plan is for extubation later this am Will continue to monitor until report to am RN shift RN.
--- NOTE | 2022-01-05 07:40 | NUR ---
ASSUMPTION OF CARE RECEIVED REPORT FROM DANUTA JIM AT 0700, ASSUMED CARE OF PATIENT. PATIENT SEDATED AND VENTILATED. PROPOFOL AT 45MCG/KG, TITRATED DOWN TO 40MCG/KG, VENT SETTINGS AC 16/400/5/25%, SP02 ABOVE 95%. DOES NOT RESPOND TO VERBAL OR PHYSICAL COMMANDS. PUPILS 2, SLUGGISH WITH SCLERAL EDEMA NOTED. SINUS CHRISTIE WITH RATE 50-60'S, SBP 90'S WITH MAP GREATER THAN 65. TF INFUSING VIA OG AT 20ML/HR, BOWEL TONES ACTIVE. ARAUJO PATENT AND DRAINING CLEAR, BERNADINE URINE. WILL REVIEW ORDERS AND TREAT PRESCRIBED.
--- NOTE | 2022-01-05 18:05 | NUR ---
SHIFT SUMMARY NEURO: DOES NOT FOLLOW COMMANDS, WHEN SEDATION IS LIGHTENED PATIENT COUGHS AGAINST TUBE AND MOVES SELF AROUND IN BED ANXIOUSLY. PROPOFOL TITRATED CHARTED FOR ADEQUATE SEDATION. PULMONARY: INTUBATED, VENT SETTINGS AC 14/400/5/25% WITH SP02 ABOVE 90-95%. PLAN TO ATTEMPT WEAN TRIAL TOMORROW. CARDIAC: BRADYCARDIC 50'S, STABLE B/P. DR. CLARK NOTIFIED OF VITALS WITH NO CONCERNS AT THIS TIME. GI: TUBE FEEDS REMAIN AT GOAL OF 20ML/HR, BOWEL CARE GIVEN AND BROWN, MEDIUM, LOOSE RESULTS NOTED. : ARAUJO PATENT AND DRAINING CLEAR, BERNADINE TO GREEN URINE. SKIN: REMAINS INTACT. FREQUENT REPOSITIONING PROVIDED. IV FLUIDS DISCONTINUED PER DR. CLARK. NO OTHER CHANGES TO PLAN OF CARE MADE. WILL GIVE REPORT TO ONCOMING RN.
--- NOTE | 2022-01-05 19:00 | NUR ---
ASSUMPTION OF CARE RECEIVED REPORT DAY SHIFT RN ASSUMED CARE OF PATIENT. PATIENT SEDATED AND VENTILATED. PROPOFOL AT 40MCG/KG, VENT SETTINGS AC/VC 16/400/5/25%, DOES NOT RESPOND TO VERBAL OR PHYSICAL COMMANDS. PUPILS 2, SLUGGISH . SINUS CHRISTIE WITH RATE 50-60'S, SBP 90'S WITH MAP GREATER THAN 65. PIVIOT 1.5 INFUSING VIA OG AT 20ML/HR,. WILL REVIEW ORDERS AND TREAT PRESCRIBED.
[2022-01-06 03:27] LABS: BASOPHILS ABSOLUTE AUTO 0.01 K/mm3 (0.00-0.23); BASOPHILS PERCENT AUTO 0 % (0-2); EOSINOPHILS PERCENT AUTO 0 % (0-6); Hemoglobin 14.6 g/dL (13.5-17.5); IMMATURE GRAN PERCENT AUTO 1 % (0-1); LYMPHOCYTES ABSOLUTE AUTO 0.39 K/mm3 (0.84-5.20); LYMPHOCYTES PERCENT AUTO 3 % (21-46); MONOCYTES ABSOLUTE AUTO 0.61 K/mm3 (0.16-1.47); MONOCYTES PERCENT AUTO 5 % (4-13); Mean Corpuscular HGB 31.4 pg (26.0-34.0); Mean Corpuscular Volume 93 fL (80-100); Mean Platelet Volume 9.5 fL (9.1-12.4); NEUTROPHILS ABSOLUTE AUTO 11.42 K/mm3 (1.96-9.15); NEUTROPHILS PERCENT AUTO 91 % (41-73); Platelet Count 237 K/mm3 (150-400); RDW Coefficient Variation 12.5 % (11.7-14.2); RDW Standard Deviation 42.7 fL (35.1-46.3); Red Blood Cell Count 4.65 M/mm3 (4.30-5.90); White Blood Cell Count 12.53 K/mm3 (4.00-11.30)
[2022-01-06 03:42] LABS: Bun/Creatinine Ratio 34.4 (12.0-20.0); Calcium, Blood 8.2 mg/dL (8.5-10.1); Creatinine, Blood 0.9 mg/dL (0.60-1.20); Potassium, Blood 4.1 mmol/L (3.5-5.5)
--- NOTE | 2022-01-06 05:37 | NUR ---
SBT prop was reduced to 20mcg/kg/min then 10mcg/kg/min and turned off in anticipation of a SBT. respiratory iniciated the SBT @0410 pt was alert and following commands. pt was tolerating breating trial pulling adiquit tital volumes rr wnl. pt was repeatedly tring to go for the ett and very restless. pt hr increased to highest of 104. rr 25 and bloodpressure wnl but increased systolic to 120's. we continued sbt for 30 min and switch back to ac/vc slowly increased propofol untill pt was adequatly sedated currentt gtt @ 35mcg/kg/min.
--- NOTE | 2022-01-06 06:30 | NUR ---
Shift Summary: Remains intubated and sedated. Propofol gtt titrated 0mcg/kg/min- 50mcg/kg/min for SBT and vent compliance. See SBT note. Pt is sinuse jerry on monitor hr rate as low as 44 titrated down on prop because of this blood pressure has remained low normal and map >65. all other vs wnl. no seizure activity noted. Damian remains patent and intact. plan is for extubation later this am Will continue to monitor until report to am RN.
--- NOTE | 2022-01-06 07:09 | NUR ---
ASSUMPTION OF CARE RECEIVED REPORT FROM JUSTYN RN, ASSUMED CARE OF PATIENT. PATIENT INTUBATED WITH VENT SETTINGS AC 14/400/5/25% SP02 98%. PROPOFOL AT 30MCG/KG, PATIENT AWAKE, FOLLOWING COMMANDS. TF AT GOAL OF 20ML/HR INFUSING VIA OG. ARAUJO PATENT AND DRAINING CLEAR, YELLOW TO LIGHT GREEN URINE. VITALS STABLE, SINUS CHRISTIE RATE 50-60'S. AWAITING DELIVERY MERCHANDISER TO ARRIVE TO ASSESS PLAN OF EXTUBATION. WILL REVIEW CURRENT ORDERS AND TREAT PRESCRIBED.
--- NOTE | 2022-01-06 09:11 | NUR ---
EXTUBATION TUBE FEED AND PROPOFOL TURNED OFF AT 0740. EDUARDO WANG TO BEDSIDE AT THAT TIME TO ASSESS PATIENT. PATIENT PLACED ON SPONTANEOUS VENT SETTINGS, ALERT AND FOLLOWING COMMANDS. EXTUBATED AT 0755 TO 2L 02 VIA NC. SUCTIONED COPIOUS AMOUNTS OF THICK, WHITE SPUTUM ORALLY. PATIENT WITH STRONG COUGH, CLEARING SECRETIONS WELL. PATIENT ORIENTED UPON EXTUBATION AND REMAINS STABLE AT THIS TIME.
--- NOTE | 2022-01-06 11:03 | NUR ---
NEURO CHANGE PATIENT WAS ALERT, ORIENTED, CLEAR SPEECH. MOVING SELF IN BED, STABLE VITALS. RN HAD ROUNDED AT 1030, HAD CONVERSATION ABOUT FAMILY BEING UPDATED THIS MORNING. AROUND 1045 RECIEVED A PHONE CALL FROM A FAMILY MEMBER, RN WENT INTO ROOM TO ASK PATIENT'S PERMISSION TO SPEAK WITH FAMILY. PATIENT HAD EYES CLOSED, DID NOT RESPOND TO VERBAL OR PHYSICAL STIMULI. BEGAN SUCTIONING PATIENT AND DR. CLARK WAS CALLED TO BEDSIDE RIGHT AWAY. VITALS REMAINED STABLE, ON ROOM AIR. ORDERS RECEIVED FOR ADDITIONAL DOSE OF KEPPRA, AND LAB LEVELS CHECKED. NOW AT THIS TIME PATIENT AROUSING, CONFUSED BUT DIRECTABLE AND CLEAR SPEECH.
--- NOTE | 2022-01-06 18:14 | NUR ---
SHIFT SUMMARY NEURO: PATIENT ALERT AND ORIENTED POST EXTUBATION. EPISODE OF NON-RESPONSIVENESS, CLEARED AFTER A COUPLE HOURS AND BECAME ALERT AGAIN. CURRENTLY DROWSY, BUT ORIENTED. MAKING PHONE CALLS TO FAMILY. PULMONARY: ON ROOM AIR. INITIALLY 2L 02 VIA NC POST EXTUBATION PREVIOUSLY CHARTED. TITRATED TO ROOM AIR QUICKLY, SP02 ABOVE 95%. PRODUCTIVE COUGH, CLEARING SECRETIONS WELL. CARDIAC: SINUS CHRISTIE WITH STABLE B/P. GI: NPO AFTER TUBE FEEDING DISCONTINUED AND OG REMOVED. ACTIVE BOWEL TONES. : ARAUJO REMAINS PATENT WITH CLEAR, YELLOW TO GREEN URINE. SKIN REMAINS INTACT. WILL REPORT TO ONCOMING RN.
--- NOTE | 2022-01-06 21:31 | NUR ---
ASSUMPTION OF CARE RECEIVED REPORT FROM TESSA vasquez, ASSUMED CARE OF PATIENT PATIENT AWAKE, FOLLOWING COMMANDS ORRIENTED ARAUJO PATENT AND DRAINING CLEAR, YELLOW TO LIGHT GREEN URINE. VITALS STABLE, SINUS CHRISTIE RATE 45-60'S. WILL REVIEW CURRENT ORDERS AND TREAT PRESCRIBED.
[2022-01-07 03:46] LABS: BASOPHILS ABSOLUTE AUTO 0.01 K/mm3 (0.00-0.23); BASOPHILS PERCENT AUTO 0 % (0-2); EOSINOPHILS PERCENT AUTO 0 % (0-6); Hematocrit 41.8 % (37.0-53.0); IMMATURE GRAN ABSOLUTE AUTO 0.04 K/mm3 (0.00-0.10); IMMATURE GRAN PERCENT AUTO 0 % (0-1); LYMPHOCYTES ABSOLUTE AUTO 0.71 K/mm3 (0.84-5.20); LYMPHOCYTES PERCENT AUTO 7 % (21-46); MONOCYTES ABSOLUTE AUTO 0.42 K/mm3 (0.16-1.47); MONOCYTES PERCENT AUTO 4 % (4-13); Mean Corpuscular HGB Conc 33.5 g/dL (31.5-36.5); Mean Corpuscular Volume 93 fL (80-100); Mean Platelet Volume 9.6 fL (9.1-12.4); NEUTROPHILS ABSOLUTE AUTO 8.48 K/mm3 (1.96-9.15); NEUTROPHILS PERCENT AUTO 88 % (41-73); Platelet Count 210 K/mm3 (150-400); RDW Coefficient Variation 12.3 % (11.7-14.2); RDW Standard Deviation 42.1 fL (35.1-46.3); Red Blood Cell Count 4.52 M/mm3 (4.30-5.90); White Blood Cell Count 9.66 K/mm3 (4.00-11.30)
[2022-01-07 04:04] LABS: Bun/Creatinine Ratio 29.6 (12.0-20.0); Calcium, Blood 7.9 mg/dL (8.5-10.1); Creatinine, Blood 0.88 mg/dL (0.60-1.20); Potassium, Blood 4.4 mmol/L (3.5-5.5)
--- NOTE | 2022-01-07 04:19 | NUR ---
SHIFT SUMMARY NEURO: PATIENT ALERT AND ORIENTED WITH PERIODS OF CONFUSSION AFTER WAKING BUT EASILY REORIENTED. aFTER GIVING KEPPRA DOSE AT 2100 PT WAS DROWSY AND GOOFY PT COMPLAINED OF FEELING OUT OF IT. PULMONARY: PT REMAINED ON RA SATURATIONS >93 PT HAS INTERMINTANT PRODUCTIVE COUGH CLEAR TO ASCULTATION CLEARING SECRETIONS WELL. CARDIAC: SINUS CHRISTIE WITH STABLE B/P. GI: NPO BED SIDESWALLOW PERFORMED PT CONTINUE NPO STATUS BECAUSE OFSIGNS OF ASPIRATION WITH ORAL INTAKE. ACTIVE BOWEL TONES. :
--- NOTE | 2022-01-07 08:32 | NUR ---
DR. PALMA UPDATED ON PATIENT. INFORMED THAT HR DOWN TO 39 ON KEY BED INSTALLER. INFORMED THAT PATIENT CONCERNED ABOUT KEPPRA IT "MAKES HIM FEEL TIRED AND LOOPY" AND HE RUNS [employer] AND IS CONCERNED THAT IT WILL MAKE HIM LOSE HIS JOB, PER KEY BED INSTALLER NURSE REPORT. KEY BED INSTALLER RN REPORTED THAT PATIENT HAVING BIZARRE BEHAVIOR THIS AM BUT THAT IT LOOKED LIKE HE WAS POSSIBLY FAKING A SEIZURE. DR. PALMA TO ROOM. PATIENT NOT RESPONSIVE TO VOICE OR STERNAL RUB. DR. PALMA PICKED PATIENT'S ARMS UP AND DROPPED OVER FACE. PATIENT MOVED ARMS EACH TIME TO AVOID HITTING FACE. WHEN NOTED THIS PATIENT THEN RAISED HANDS UP ABOVE HEAD AND STARTED SHAKING THEM IF HAVING SEIZURE. STATES HE WILL PUT ORDERS IN.
--- NOTE | 2022-01-07 09:00 | NUR ---
INITIAL ASSESSMENT PATIENT SLEEPING SOUNDLY UPON ENTERING ROOM. PATIENT ONLY ORIENTED TO HOSPITAL AND SELF. PATIENT DISORIENTED TO TOWN, YEAR/ MONTH. PATIENT APPEARS LETHARGIC. PATIENT FLAT, NEUTRAL. PATIENT HAS GARBLED SPEECH. SEE PREVIOUS NURSE NOTED ON BIZARRE PATIENT BEHAVIOR THIS AM WHILE DR. PALMA IN ROOM. PATIENT WEAK BUT ABLE TO MOVE ALL EXTREMITIES. PATIENT AFEBRILE. PATIENT COMPLAINS OF 9/10 HEADACHE AT BACK OF HEAD. LUNG SOUNDS CLEAR. PATIENT SATTING 90% AND GREATER ON RA. PATIENT HAS OCCASIONAL COUGH AND IS COUGHING UP SMALL AMOUNTS OF THICK, YELLOW SPUTUM. PATIENT IN SB TO SR, HR 40S TO 60S. SBP 80S TO LOW 100S. PATIENT NPO; FAILED DRILLER BRAKE LINING NURSE BEDSIDE SWALLOW EVAL. SPEECH EVAL ORDERED. HYPERACTIVE BOWEL SOUNDS NOTED. LAST BM DOCUMENTED YESTERDAY. ARAUJO PULLED IN AM; NO VOID THIS SHIFT YET. HYPOSPADIAS NOTED. SKIN APPEARS WNL. NS INFUSING TKO. BED LOW, CALL LIGHT IN REACH, BED ALARM ON. WILL CONTINUE TO MONITOR PATIENT FREQUENTLY THROUGHOUT SHIFT.
--- NOTE | 2022-01-07 12:34 | NUR ---
PATIENT AFEBRILE. HR IN THE 40S. SBP IN THE 90S. NS STARTED AT 100 MLS/ HOUR FOR MAINTENANCE PATIENT UNABLE TO EAT AND DRINK UNTIL SPEECH THERAPY SEES. PRN TYLENOL AR GIVEN FOR COMPLAINTS OF HEADACHE. PATIENT STILL DOES NOT HAVE TO VOID. BLADDER SCAN SHOWS GREATER THAN 328 MLS OF URINE IN BLADDER. WILL TRY AGAIN SHORTLY.
--- NOTE | 2022-01-07 16:30 | NUR ---
PATIENT AFEBRILE. HR IN THE 40S. SBP IN THE LOW 100S. NO OTHER ACUTE CHANGES TO NOTE ON AT THIS TIME. WILL CONTINUE TO MONITOR.
--- NOTE | 2022-01-07 18:46 | NUR ---
SHIFT SUMMARY PATIENT CONFUSED THIS AM AND LETHARGIC THROUGHOUT THIS DAY. PATIENT NAPPED ON AND OFF THROUGHOUT THE DAY. PATIENT IS MORE ALERT AND ORIENTED AT THIS TIME. PATIENT CALM AND COOPERATIVE. SPEECH LESS DIFFICULT TO UNDERSTAND. PATIENT HAS REMAINED AFEBRILE. PATIENT RECEIVED PRN TYLENOL FOR COMPLAINT OF HEADACHE. PATIENT HAD BIZARRE BEHAVIOR THIS AM AND APPEARED TO HAVE POSSIBLY FAKED A SEIZURE. KEPPRA DC'D THIS AM. PATIENT HAS HAD NO EPISODES SINCE. PATIENT REMAINS WEAK BUT ABLE TO REPOSITION SELF AND STAND UP WITH 1 PERSON ASSIST AND FWW. PATIENT REMAINED SATTING 90% AND GREATER ON RA. PATIENT CONTINUED COUGHING UP THICK, YELLOW SPUTUM. PATIENT REMAINED SB TO SR, HR 40S TO 60S. SBP 80S TO 1-TEENS. NO BM THIS SHIFT. PATIENT REMAINED NPO UNTIL SPEECH CAN EVALUATE. PATIENT VOIDED 1180 MLS OF URINE. NO CHANGES TO SKIN NOTED. NS INCREASED FROM TKO TO 100 MLS/ HOUR NPO ALL DAY. 1 G CALCIUM GLUCONATE GIVEN FOR CALCIUM OF 1.04 THIS AM. COMPLETE BED BATH PERFORMED THIS SHIFT. SISTER AND S.O. CHECKED UP ON PATIENT TODAY AND PATIENT HAS BEEN ON HIS CELL PHONE OFF AND ON. NO COMPLAINTS AT THIS TIME. BED LOW, CALL LIGHT IN REACH. REPORT WILL BE GIVEN TO ASSUMING AUTOMOTIVE SERVICE MANAGER NURSE SHORTLY.
--- NOTE | 2022-01-07 20:26 | NUR ---
ASSUMED CARE/HEADACHE PATIENT LYING IN BED WITH EYES CLOSED. SOFT MUSIC PLAYING ON TV. CELL PHONE AND ICE CHIPS ON BEDSIDE TABLE. NS INF @ 100ML/HR. CALL LIGHT IN REACH OF PATIENT. REPORT COMPLETED WITH TENA JIM. HE C/O HEADACHE THAT WRAPS AROUNS THE BACK OF HIS HEAD, BURNING EYES, AND NUMBNESS AND TINGLING OF HIS BODY. CBG CHECKED AT RESULTED AT 73. TYLENOL SUPPOSITORY ADMINISTERED FOR HEADACHE 8/10 AND LACRILUBE FOR BURNING OF EYES. LIGHTS TURNED OFF, BLINDS CLOSED, AND SLEEPING EYE MASK PROVIDED TO PATIENT.
--- NOTE | 2022-01-07 21:30 | NUR ---
SEIZURE LIKE ACTIVITY PATIENT BEGAN SHAKING WHILE LYING IN BED. NOT VERBALLY RESPONDING TO STAFF BUT PUSHING AWAY STAFF WHEN STERNAL RUBBED. PATIENT THEN SAT UP IN BED AT A 90 DEGREE ANGLE STILL SHAKING, THEN SLAMMING BACK DOWN ONTO THE BED WHILE STILL SHAKING. AFTER REPEATEDLY SAYING PATIENTS NAME HE BEGAN RESPONDING VERBALLY WITH NO POST TICTAL PHASE.
[2022-01-08 03:45] LABS: Bun/Creatinine Ratio 24.6 (12.0-20.0); Calcium, Blood 7.8 mg/dL (8.5-10.1); Creatinine, Blood 0.97 mg/dL (0.60-1.20); Potassium, Blood 4.1 mmol/L (3.5-5.5)
--- NOTE | 2022-01-08 06:22 | NUR ---
SHIFT SUMMARY PATIENT SLEPT THROUGH THE SHIFT. ONE DOSE OF TYLENOL SUPPOSITORY FOR HEADACHE AT BEGINNING OF SHIFT GIVEN. USED CALL LIGHT APPROPRIATELY, MADE NEEDS KNOWN TO STAFF. NORMOTHERMIC. NUMBNESS AND TINGLING T/O SHIFT. ONE SEIZURE LIKE EVENT AT BEGINNING OF SHIFT-SEE "SEIZURE LIKE ACITIVITY" NURSE NOTE. LS REMAIN CLEAR T/O, SATTING >90% ON ROOM AIR. PRODUCTIVE COUGH WITH THICK YELLOW SPUTUM. NO BM THIS SHIFT. ICE CHIPS ONLY WITH NO COUGHING OR ASPIRATING. VOIDED TOTAL OF 775 USING URINAL. PATIENT'S AUNT AIDA AND GIRLFRIEND SAMI UPDATED ON PATIENT STATUS AT BEGINNING OF SHIFT. NO OTHER EVENTS DURING SHIFT.
--- NOTE | 2022-01-08 08:45 | NUR ---
INITIAL ASSESSMENT PATIENT SLEEPING UPON ENTERING ROOM. PATIENT DIFFICULT TO WAKE BUT ONCE NURSE MENTIONED THAT HE NEEDS TO WAKE UP BECAUSE HE WILL HAVE A SWALLOW EVAL SO WE TRY TO FEED HIM THEN HE WOKE MUCH EASIER. PATIENT ORIENTED TO SELF AND HOSPITAL. PATIENT CALM, COOPERATIVE, PLEASANT, AND THANKFUL. PATIENT WEAK BUT ABLE TO MOVE ALL EXTREMITIES. PATIENT 1 PERSON ASSIST WITH FWW. PATIENT AFEBRILE. PATIENT GIVEN PRN TYLENOL FOR COMPLAINTS OF HEADACHE AT BACK OF HEAD. PATIENT SATTING 90% AND GREATER ON RA. PATIENT COUGHING UP THICK, YELLOW PHLEGM. PATIENT IN SB, HR 40S TO 50S. SBP 80S TO 90S. PATIENT HAS SWALLOW EVAL THIS AM. LAST BM ON 01/06. WNL; PATIENT VOIDING INTO BEDSIDE URINAL INDEPENDENTLY. HYPOSPADIAS NOTED. SKIN APPEARS C/D/I. NS INFUSING AT 100 MLS/ HOUR. BED LOW, CALL LIGHT IN REACH. WILL CONTINUE TO MONITOR T/O SHIFT.
[2022-01-08] MEDS ORDERED: CYCL10 PO (11:50)
--- NOTE | 2022-01-08 12:40 | NUR ---
PATIENT AWAKE AND TEXTING IN BED. PATIENT MORE ALERT AND ORIENTED. PATIENT ABLE TO ANSWER ALL ORIENTATION QUESTIONS CORRECTLY. HR IN THE 50S. SBP IN THE 150S. PATIENT SITTING UP IN BED AND EATING MECHANICAL SOFT DIET; TOLERATING WELL. NO OTHER ACUTE CHANGES TO NOTE ON AT THIS TIME. NO COMPLAINTS. WILL CONTINUE TO MONITOR.
--- NOTE | 2022-01-08 15:29 | NUR ---
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facility] WHERE PATIENT STATES HE GETS HIS MEDS FILLED AT. PATIENT WILL BE TRANSFERRED TO PCU SHORTLY.
--- NOTE | 2022-01-08 16:30 | NUR ---
PATIENT SUCCESSFULLY TRANSFERRED TO PCU, ROOM 02. ALL BELONGINGS SENT WITH PATIENT INCLUDING PHONE, BIOCHEMICAL ENGINEER, WALLET AND BELONGING BAG.
--- NOTE | 2022-01-08 17:49 | NUR ---
ASSUMPTION OF CARE/END OF SHIFT: PT TRANSFERED FROM ICU, ARRIVES APPROX 1630, STANDS AND TRANSFERS SELF TO PCU BED W/1 PERSON ASSIST. PT A&O, ANSWERING QUESTIONS APPROPRIATELY, TRANSITIONED TO TELEMETRY W/SR ON MONITOR. AT THIS TIME, PT RESTING QUIETLY IN ROOM WITH DINNER TRAY. WILL CONTINUE TO MONITOR AND TREAT ACCORDINGLY UNTIL CHANGE OF SHIFT.
[2022-01-09 04:24] LABS: Hematocrit 48.9 % (37.0-53.0); Hemoglobin 17.3 g/dL (13.5-17.5); Mean Corpuscular HGB 30.8 pg (26.0-34.0); Mean Corpuscular HGB Conc 35.4 g/dL (31.5-36.5); Mean Platelet Volume 9.5 fL (9.1-12.4); Platelet Count 258 K/mm3 (150-400); RDW Coefficient Variation 11.6 % (11.7-14.2); RDW Standard Deviation 36.8 fL (35.1-46.3); Red Blood Cell Count 5.61 M/mm3 (4.30-5.90)
[2022-01-09 04:30] LABS: Mean Corpuscular Volume 87 fL (80-100)
[2022-01-09 04:42] LABS: Bun/Creatinine Ratio 24.7 (12.0-20.0); Creatinine, Blood 0.89 mg/dL (0.60-1.20); Potassium, Blood 4.6 mmol/L (3.5-5.5)
--- NOTE | 2022-01-09 04:56 | NUR ---
COURSE DEVELOPER SUMMARY PT HAS REMAINED ALERT AND ORIENTED COMMUNICATING W STAFF APPROPRIATELY. PT HAS HAD NO SEIZURE LIKE ACTIVITY THIS SHIFT. BP WNL AND STABLE. TELE SHOWING SB 45-60 THIS SHIFT. PT SWALLOWING W/O DIFFICULTY THIS SHIFT. PT ABLE TO SLEEP FOR MAJORITY OF THE NIGHT. WILL REPORT TO ONCOMING RN.
--- NOTE | 2022-01-09 16:36 | NUR ---
SHIFT SUMMARY: NO ACUTE CHANGES T/OUT SHIFT TODAY. PT CONTINUES A&Ox4, COOPERATIVE WITH CARE, NO SEIZURE LIKE ACTIVITY NOTED. O2 SATS >92% ON RA, SR ON MONITOR W/RATE 70s, DENIES CP. PT REASSESSED BY ST AND UPGRADED TO SOFT SMALL BITE DIET, TOLERATING WELL. PT AMBULATES IN ROOM AND W/PT TO/FROM HALLWAY USING 1 PERSON ASSIST AND FWW, TOLERATES WELL, BUT DOES C/O FEELING WEAK/DIZZY AT TIMES. PT RESTING QUIETLY IN BED, NO CURRENT COMPLAINT, VSS. WILL CONTINUE TO MONITOR AND TREAT ACCORDINGLY UNTIL CHANGE OF SHIFT.
--- NOTE | 2022-01-10 05:45 | NUR ---
SHIFT SUMMARY A/OX4, SBA WITH FWW. PT ABLE TO SHOWER THIS SHIFT. C/O HEADACHE, MEDICATED PER EMAR. TELE SB/SR. VSS, NO ACUTE CHANGES. BED IN LOWEST POSITION WITH CALL LIGHT IN REACH. WILL CONTINUE TO MONITOR AND REPORT TO ONCOMING RN.
[2022-01-10] MEDS ORDERED: PRED20 PO (10:52)
--- NOTE | 2022-01-10 11:14 | NUR ---
DISCHARGE NOTE: PATIENT WAS EDUCATED ON DISCHARGE INSTRUCTIONS. HE VERBALIZED UNDERSTANDING OF INSTRUCTIONS. PERSCRIPTION WAS FAXED TO [facility] WHICH IS HIS PREFERRED PHARMACY. IV WAS TAKEN OUT AND WNL. PATIENT IS A&OX4. VS ARE WNL AND IS ON RA. HE IS A SBA WITH FWW AND GAIT BELT. PATIENT DENIES SHORTNESS OF BREATH OR CHEST PAIN. HOME HEALTH HAS BEEN SET UP FOR HIM THROUGH THE SONAR WATCHSTANDER. HE IS TOLERATING PO INTAKE AND IS VOIDING/PASSING GAS. PATIENT IS WAITING FOR HIS RIDE THAT WILL SHOW UP IN AN HOUR OR TWO TO DRIVE AND TAKE HIM HOME. HE WILL BE WHEELCHAIRED DOWN TO THE CAR.
--- NOTE | 2022-01-10 12:28 | NUR ---
PATIENT IS BEING WHEELCHAIRED OUT TO HIS FRIENDS CAR TO BE TAKEN HOME. PATIENT HAS HIS PERSONAL ITEMS GATHERED.
== END 2022-01-10 12:28 | disposition home health service (06) | DRG 915 ==
LOC: ER 16:05 → ICUW 16:06 → ERHOLD 16:06 → ER 17:28 → ICUW 19:57 → PCU 01-04 12:32 → ICUW 01-04 12:33 → PCU 01-08 16:25
PROVIDERS: Internal Medicine; Internal Medicine Critical Care Medicine; ADMIT Internal Medicine
PROC: 5A1945Z Respiratory Ventilation, 24-96 Consecutive Hours (ICD-10-PCS; 2022-01-03)
PROC: 0BH17EZ Insertion of Endotracheal Airway into Trachea, Via Natural or Artificial Opening (ICD-10-PCS; principal; 2022-01-04)
DX: T78.3XXA Angioneurotic edema, initial encounter (principal); J96.01 Acute respiratory failure with hypoxia; G40.909 Epilepsy, unspecified, not intractable, without status epilepticus; M91.10 Juvenile osteochondrosis of head of femur [Legg-Calve-Perthes], unspecified leg; G54.0 Brachial plexus disorders; K21.9 Gastro-esophageal reflux disease without esophagitis; N18.2 Chronic kidney disease, stage 2 (mild); F10.20 Alcohol dependence, uncomplicated; R00.1 Bradycardia, unspecified; Z96.642 Presence of left artificial hip joint; Z78.1 Physical restraint status; Z87.442 Personal history of urinary calculi; Z98.890 Other specified postprocedural states; Z87.891 Personal history of nicotine dependence; Z88.6 Allergy status to analgesic agent; Z91.018 Allergy to other foods; Z79.899 Other long term (current) drug therapy; X58.XXXA Exposure to other specified factors, initial encounter
CPT/HCPCS: 31500; 36415; 51702; 70450; 71045; 80048; 80053; 80177; 81001; 82330; 82947; 83735; 84146; 85025; 85027; 87077; 87086; 87186; 92526; 92610; 94002; 94003; 96372; 96372-59; 96374; 96375; 96376; 97110; 97116; 97162; 97530; 99291-25; A9270; G0378; J0171; J0610; J1200; J1650; J1953; J2060; J2250; J2405; J2704; J2930; J3010; J3411; J7030; J7512

== ENCOUNTER 2022-12-26 17:43 | Emergency (ER) | payer OTHER ==
[~2022-12-26] VITALS: Ht 157.5 cm; Wt 54.4 kg
[~2022-12-26 17:43] MED LIST changes: +PRED20 PO
[2022-12-26 21:30] VITALS: BP 122/91
[2022-12-26] MEDS ORDERED: ONDA4 PO (21:46)
== END 2022-12-26 22:02 | disposition home or self-care (01) ==
LOC: ER 17:43
DX: S09.90XA Unspecified injury of head, initial encounter (principal); W22.8XXA Striking against or struck by other objects, initial encounter; G40.909 Epilepsy, unspecified, not intractable, without status epilepticus; Z88.5 Allergy status to narcotic agent; Z91.018 Allergy to other foods
CPT/HCPCS: 70450; 99283-25; A9270

== ENCOUNTER 2023-07-17 19:34 | Emergency (ER) | payer OTHER ==
[~2023-07-17] VITALS: Ht 160 cm; Wt 53.1 kg
[2023-07-17 21:24] LABS: Source, Urine Clean Catch
[2023-07-17 21:25] LABS: BASOPHILS ABSOLUTE AUTO 0.09 K/mm3 (0.00-0.23); BASOPHILS PERCENT AUTO 2 % (0-2); EOSINOPHILS ABSOLUTE AUTO 0.38 K/mm3 (0.00-0.68); EOSINOPHILS PERCENT AUTO 7 % (0-6); Hematocrit 42.6 % (37.0-53.0); Hemoglobin 14.7 g/dL (13.5-17.5); IMMATURE GRAN ABSOLUTE AUTO 0.01 K/mm3 (0.00-0.10); IMMATURE GRAN PERCENT AUTO 0 % (0-1); LYMPHOCYTES PERCENT AUTO 32 % (21-46); MONOCYTES ABSOLUTE AUTO 0.65 K/mm3 (0.16-1.47); MONOCYTES PERCENT AUTO 12 % (4-13); Mean Corpuscular HGB 31.3 pg (26.0-34.0); Mean Corpuscular HGB Conc 34.5 g/dL (31.5-36.5); Mean Corpuscular Volume 91 fL (80-100); Mean Platelet Volume 8.7 fL (9.1-12.4); NEUTROPHILS ABSOLUTE AUTO 2.42 K/mm3 (1.96-9.15); NEUTROPHILS PERCENT AUTO 46 % (41-73); Platelet Count 261 K/mm3 (150-400); RDW Coefficient Variation 11.9 % (11.7-14.2); RDW Standard Deviation 39.8 fL (35.1-46.3); White Blood Cell Count 5.25 K/mm3 (4.00-11.30)
[2023-07-17 21:29] LABS: Appearance, Urine Clear (Clear); Bilirubin, Urine Neg (Neg); Blood, Urine Neg (Neg); Glucose Qualitative, Urine Neg (Neg); Ketones, Urine Neg (Neg); Leukocyte Esterase, Urine 2+ (Neg); Nitrite, Urine Neg (Neg); Protein, Urine Neg (Neg); Urobilinogen, Urine NORM (Normal); pH, Urine 6.5 (5.0-8.0)
[2023-07-17 21:34] LABS: Color, Urine Pale Yellow (P-Yellow)
[2023-07-17 21:35] LABS: Amorphous Light (0-Heavy); Bacteria Few /hpf; Red Blood Cells, Urine Not Seen /hpf (0-2); Squamous Epithelial Cells Rare /hpf (Few)
[2023-07-17 21:44] LABS: Albumin, Blood 3.6 g/dL (3.4-5.0); Albumin/Globulin Ratio 1.2 (0.8-1.8); Bilirubin, Total 0.3 mg/dL (0.1-1.0); Bun/Creatinine Ratio 7.9 (12.0-20.0); Calcium, Blood 8.1 mg/dL (8.5-10.1); Creatinine, Blood 1.51 mg/dL (0.60-1.20); Globulin, Blood 3.1 g/dL (2.2-4.0); Magnesium, Blood 2.2 mg/dL (1.6-2.4); Potassium, Blood 3.8 mmol/L (3.5-5.5); Total Protein, Blood 6.7 g/dL (6.4-8.2)
[2023-07-17 22:02] LABS: U Amphetamine Screen Not Detected; U Barbituate Screen Not Detected; U Benzodiazapine Screen Not Detected; U Buprenorphine Screen Not Detected; U Cannabinoids Screen Not Detected; U Cocaine Screen Not Detected; U Methadone Screen Not Detected; U Methamphetamine Screen Not Detected; U Opiates Screen Not Detected; U Oxycodone Screen Not Detected; U Phencyclidine Screen Not Detected
[2023-07-17 22:27] VITALS: BP 129/85
== END 2023-07-17 22:26 | disposition home or self-care (01) ==
LOC: ER 19:34
PROVIDERS: Emergency Medicine
DX: K52.9 Noninfective gastroenteritis and colitis, unspecified (principal); S09.90XA Unspecified injury of head, initial encounter; E86.0 Dehydration; G40.909 Epilepsy, unspecified, not intractable, without status epilepticus; Z91.018 Allergy to other foods; Z88.5 Allergy status to narcotic agent; Z87.19 Personal history of other diseases of the digestive system; W19.XXXA Unspecified fall, initial encounter; Y92.002 Bathroom of unspecified non-institutional (private) residence as the place of occurrence of the external cause
CPT/HCPCS: 80053; 81001; 83605; 83690; 83735; 84145; 85025; 87077; 87086; 87186; 96361; 96374; 99284-25; A9270; J1885; J7120

== ENCOUNTER 2024-06-29 16:36 | Inpatient (IN) | payer OTHER ==
[~2024-06-29] VITALS: Ht 160 cm; Wt 44.5 kg
[2024-06-29] MEDS ORDERED: NS 1,000 ML IV SCH ×3 (17:00→21:10)
[2024-06-29] MEDS ORDERED: Pseudoephedrine HCl 30 MG Tab PO ONE (17:00)
[2024-06-29 17:19] LABS: BASOPHILS ABSOLUTE AUTO 0.01 K/mm3 (0.00-0.23); BASOPHILS PERCENT AUTO 0 % (0-2); EOSINOPHILS ABSOLUTE AUTO 0.04 K/mm3 (0.00-0.68); EOSINOPHILS PERCENT AUTO 2 % (0-6); Hematocrit 44.2 % (37.0-53.0); Hemoglobin 15.2 g/dL (13.5-17.5); IMMATURE GRAN ABSOLUTE AUTO 0.02 K/mm3 (0.00-0.10); IMMATURE GRAN PERCENT AUTO 1 % (0-1); LYMPHOCYTES ABSOLUTE AUTO 0.42 K/mm3 (0.84-5.20); LYMPHOCYTES PERCENT AUTO 16 % (21-46); MONOCYTES ABSOLUTE AUTO 0.26 K/mm3 (0.16-1.47); MONOCYTES PERCENT AUTO 10 % (4-13); Mean Corpuscular HGB 31.3 pg (26.0-34.0); Mean Corpuscular HGB Conc 34.4 g/dL (31.5-36.5); Mean Corpuscular Volume 91 fL (80-100); Mean Platelet Volume 8.8 fL (9.1-12.4); NEUTROPHILS ABSOLUTE AUTO 1.91 K/mm3 (1.96-9.15); NEUTROPHILS PERCENT AUTO 72 % (41-73); Platelet Count 153 K/mm3 (150-400); RDW Coefficient Variation 12.1 % (11.7-14.2); RDW Standard Deviation 40.3 fL (35.1-46.3); Red Blood Cell Count 4.86 M/mm3 (4.30-5.90); White Blood Cell Count 2.66 K/mm3 (4.00-11.30)
[2024-06-29 18:00] LABS: Bun/Creatinine Ratio 13.9 (12.0-20.0); Calcium, Blood 8.8 mg/dL (8.5-10.1); Creatinine, Blood 1.22 mg/dL (0.60-1.20); Potassium, Blood 3.9 mmol/L (3.5-5.5)
[2024-06-29] MEDS ORDERED: Ketorolac Tromethamine 15mg Vial IV ONE (18:15)
[2024-06-29] MEDS ORDERED: PSEU120ER PO (18:32)
[2024-06-29] MEDS ORDERED: Ondansetron HCl 2 MG / ML 2ML Vial IV PRN (21:10)
[2024-06-29] MEDS ORDERED: Acetaminophen 500 MG Tab PO PRN (21:10)
[2024-06-29 21:32] LABS: Magnesium, Blood 2.1 mg/dL (1.6-2.4)
[2024-06-29] MEDS ORDERED: Oseltamvir Phosphate 30 MG Cap PO SCH (21:33)
[2024-06-29] MEDS ORDERED: Acetaminophen 325 MG TABLET PO ONE (22:00)
[2024-06-30 05:17] LABS: Hematocrit 41.8 % (37.0-53.0); Hemoglobin 14.5 g/dL (13.5-17.5); Mean Corpuscular HGB 31.5 pg (26.0-34.0); Mean Corpuscular HGB Conc 34.7 g/dL (31.5-36.5); Mean Corpuscular Volume 91 fL (80-100); Platelet Count 159 K/mm3 (150-400); RDW Coefficient Variation 12.1 % (11.7-14.2); RDW Standard Deviation 40.3 fL (35.1-46.3)
[2024-06-30 06:03] LABS: Bun/Creatinine Ratio 18.5 (12.0-20.0); Calcium, Blood 8.2 mg/dL (8.5-10.1); Creatinine, Blood 0.97 mg/dL (0.60-1.20); Potassium, Blood 4.2 mmol/L (3.5-5.5)
[2024-06-30 07:47] VITALS: BP 113/52
[2024-06-30] MEDS ORDERED: Enoxaparin 30 MG/0.3 ML SYR SC SCH (09:00)
--- NOTE | 2024-06-30 12:12 | NUR ---
ADMIT: PT ARRIVED FROM ER @1212. NS INFUSING @100/HR. LACTIC OF 2.5 NOTED. CRITICAL CALLED BY ER NURSE. PT PLEASANT AND COOPERATIVE. ONE PERSON ASSIST. CALL LIGHT IN REACH.
[2024-06-30 12:16] VITALS: BP 119/103
[2024-06-30] MEDS ORDERED: CefTRIAXone Sodium 1,000 MG in NS 100 ML IV SCH (14:00)
[2024-06-30 15:22] VITALS: BP 102/86
--- NOTE | 2024-06-30 15:48 | NUR ---
PT C/O BURNING UPON URINATION WITH ABDOMINAL PAIN. CALLED DR. BEE WHO GAVE VERBAL ORDER FOR URINALYSIS CULTURE IF INDICATED. ORDER PLACED AND OBTAINED.
[2024-06-30 15:54] LABS: Source, Urine Clean Catch
[2024-06-30 16:03] LABS: Appearance, Urine Hazy (Clear); Bilirubin, Urine Neg (Neg); Blood, Urine 1+ (Neg); Color, Urine Yellow (P-Yellow); Glucose Qualitative, Urine Neg (Neg); Ketones, Urine 1+ (Neg); Leukocyte Esterase, Urine 1+ (Neg); Nitrite, Urine Neg (Neg); Protein, Urine Neg (Neg); Urobilinogen, Urine NORM (Normal)
[2024-06-30 16:21] LABS: Bacteria Many /hpf; Red Blood Cells, Urine 0-2 /hpf (0-2); Squamous Epithelial Cells Rare /hpf (Few)
--- NOTE | 2024-06-30 18:27 | NUR ---
Pt. is awake in bed in a darkened room when he welcomes my visit. Pt. displays evidence of a difficult team getting his words out. With patient theraputic listening and a acalming presence this automatic furnace operator sought to encourage the Pt. Considered matters of josé manuel and belief. Pt. kept apologizing for being slow to speak. Prayed with the Pt. and agreed to return and see the Pt. in the morning.
--- NOTE | 2024-06-30 18:35 | NUR ---
SHIFT SUMMARY: NEW ADMIT THIS SHIFT. NS INFUSING @ 100/HR. TELE IN PLACE RUNNING SINUS RHYHTM IN THE 50'S. PT C/O BURNING UPON URINATION. SPOKE WITH DR. BEE WITH VERBAL ORDER FOR URINALYSIS. LAB RESULTS BACK WITH MANY BACTERIA PRESENT. PT ALSO C/O HACKING, PRODUCTIVE COUGH. ATTEMPTED CALL TO HOSPITALIST BUT UABLE TO REACH WITH ATTEMPT. WILL PASS ONTO HEALTH INSURANCE SALES AGENT. PT VERY PLEASANT AND COOPERATIVE WITH ALL CARE. UPDATES PROVIDED TO PT SISTER AND FRIEND PER PT REQUEST. ON DROPLET PRECAUTIONS FOR INFLUENZA A. LACTIC ACID TRENDING DOWN OF 2.3. CALL LIGHT IN REACH. BED IN LOWEST POSITION.
[2024-06-30 19:28] VITALS: BP 136/90
[2024-07-01] VITALS (7 sets, daily range): BP systolic 89–120; BP diastolic 58–81
--- NOTE | 2024-07-01 03:02 | NUR ---
ATTEMPTED CALL TO HOSPITALIST I WAS NOTIFIED BY COMMUNICATIONS TECHNOLOGIST THAT THE PATIENT (WHO HAS BEEN RUNNING CHRISTIE IN THE 50'S BPM) HAD MOMENTARILY WENT DOWN TO 36 BPM AND THEN INTO A JUNCTIONAL RHYTHM FOR 3 BEATS. THE PATIENT WAS IN A VERY DEEP SLEEP, BUT AROUSABLE. THE PATIENT DENIES CHEST PAIN OR PRESSURE. WE THEN DID VITAL SIGNS WHICH WERE ALL WITHIN NORMAL LIMITS. MY PHONE CALL TO HOSPITALIST WAS NOT RETURNED. WE WILL ATTEMPT TO CALL AGAIN LATER. CHARGE INFORMED.
--- NOTE | 2024-07-01 04:12 | NUR ---
SHIFT SUMMARY ADMITTED FOR SYNCOPE/WITNESSED GLF X2. FULL CODE. IV FLUID INFUSING. ANTIB RX ARE SCHEDULED. SEE PREVIOUS NOTE FOR TELEMETRY OF NOTE/HOSPITALIST CONTACT. TELEMETRY: CHRISTIE @ 55 BPM. HE IS ON A REGULAR DIET. ON RA. HE DOES HAVE A UTI WELL. HE HAS BEEN VERY WEAK HERE. WHEN HE COUGHS UP SPUTUM, IT IS YELLOW. HE IS A&O X4. HE IS IN ISOLATION PRECAUTIONS FOR FLU+.
[2024-07-01 04:46] LABS: BASOPHILS ABSOLUTE AUTO 0.01 K/mm3 (0.00-0.23); BASOPHILS PERCENT AUTO 0 % (0-2); EOSINOPHILS ABSOLUTE AUTO 0.07 K/mm3 (0.00-0.68); EOSINOPHILS PERCENT AUTO 2 % (0-6); Hematocrit 38.6 % (37.0-53.0); Hemoglobin 13.3 g/dL (13.5-17.5); IMMATURE GRAN ABSOLUTE AUTO 0.02 K/mm3 (0.00-0.10); IMMATURE GRAN PERCENT AUTO 1 % (0-1); LYMPHOCYTES ABSOLUTE AUTO 1.16 K/mm3 (0.84-5.20); LYMPHOCYTES PERCENT AUTO 27 % (21-46); MONOCYTES ABSOLUTE AUTO 0.45 K/mm3 (0.16-1.47); MONOCYTES PERCENT AUTO 10 % (4-13); Mean Corpuscular HGB 31.1 pg (26.0-34.0); Mean Corpuscular HGB Conc 34.5 g/dL (31.5-36.5); Mean Corpuscular Volume 90 fL (80-100); Mean Platelet Volume 9.2 fL (9.1-12.4); NEUTROPHILS ABSOLUTE AUTO 2.62 K/mm3 (1.96-9.15); NEUTROPHILS PERCENT AUTO 61 % (41-73); Platelet Count 163 K/mm3 (150-400); RDW Coefficient Variation 12.2 % (11.7-14.2); RDW Standard Deviation 40.3 fL (35.1-46.3); Red Blood Cell Count 4.27 M/mm3 (4.30-5.90); White Blood Cell Count 4.33 K/mm3 (4.00-11.30)
[2024-07-01 05:06] LABS: Albumin/Globulin Ratio 1.1 (0.8-1.8); Bilirubin, Total 0.5 mg/dL (0.1-1.0); Bun/Creatinine Ratio 15.2 (12.0-20.0); Calcium, Blood 7.7 mg/dL (8.5-10.1); Creatinine, Blood 1.05 mg/dL (0.60-1.20); Globulin, Blood 2.7 g/dL (2.2-4.0); Potassium, Blood 3.9 mmol/L (3.5-5.5); Total Protein, Blood 5.7 g/dL (6.4-8.2)
[2024-07-01] MEDS ORDERED: CefTRIAXone Sodium 1,000 MG in NS 100 ML IV SCH (09:00)
[2024-07-01] MEDS ORDERED: Albuterol 2.5 MG/3 ML VIAL INH PRN (11:15)
[2024-07-01] MEDS ORDERED: Ipratropium/Albuterol SulF 2.5-0.5MG/3 ML Amp INH SCH (11:15)
[2024-07-01] MEDS ORDERED: Mometasone/Formoterol MDI 200/5 mcg 13 GM INH SCH (11:25)
[2024-07-01] MEDS ORDERED: GuaiFENesin 600 MG TabCR PO SCH (14:15)
--- NOTE | 2024-07-01 17:44 | NUR ---
PATIENT A/OX4, UP WITH 1 ASSIST TO CHAIR TODAY. WORKED WITH PT. VSS, JUNCTIONAL RHYTHM ON TELE WITH PULSE 50-60'S. POSITIVE BLOOD CX, DR BEE NOTIFIED AND NO NEW ORDERS RECEIVED. PATIENT EATING BETTER TODAY AND DENIES ANY NAUSEA. SKIN INTACT. CONTINENT OF BOWEL/BLADDER. NO NEW CONCERNS THIS SHIFT.
[2024-07-02 02:37] VITALS: BP 93/75
[2024-07-02 02:39] VITALS: BP 108/75
--- NOTE | 2024-07-02 04:05 | NUR ---
NIGHT SIFT SUMMARY VSS. ALERT AND ORIENTED. COOPERATIVE WITH CARE. NS INFUSING AT 100 ML/HR. HAD BEEN RESTING QUIETLY IN RECLINER UNTIL HS, REQUESTED AND ASSISTED INTO BED. HAS BEEN RESTING QUIETLY WITH FEW INTERRUPTIONS. MED TELE JUNCTIONAL, ASYMPTOMATIC. ABLE TO REPOSITION SELF IN BED WITHOUT ASSIST. CALL LIGHT IN REACH, RAILS UP X 2 AND BED IN LOW POSITION FOR SAFETY. REMAINS ON DROPLET PRECAUTIONS FOR INFLUENZA. WILL CONT TO MONITOR.
[2024-07-02 04:49] LABS: Hematocrit 39.6 % (37.0-53.0); Hemoglobin 13.6 g/dL (13.5-17.5); Mean Corpuscular HGB 31.5 pg (26.0-34.0); Mean Corpuscular HGB Conc 34.3 g/dL (31.5-36.5); Mean Corpuscular Volume 92 fL (80-100); Mean Platelet Volume 9.1 fL (9.1-12.4); Platelet Count 169 K/mm3 (150-400); RDW Coefficient Variation 12.2 % (11.7-14.2); RDW Standard Deviation 41.2 fL (35.1-46.3); Red Blood Cell Count 4.32 M/mm3 (4.30-5.90); White Blood Cell Count 2.73 K/mm3 (4.00-11.30)
[2024-07-02 05:16] LABS: Bun/Creatinine Ratio 12.3 (12.0-20.0); Calcium, Blood 8.4 mg/dL (8.5-10.1); Creatinine, Blood 1.14 mg/dL (0.60-1.20); Potassium, Blood 4.1 mmol/L (3.5-5.5)
[2024-07-02 05:25] LABS: BAND PERCENT MAN 3 % (0-8); BASOPHILS PERCENT MAN 0 % (0-2); EOSINOPHILS ABSOLUTE MAN 0.02 K/mm3 (0.00-0.68); EOSINOPHILS PERCENT MAN 1 % (0-6); LYMPHOCYTES % ATYPICAL MANUAL 2 % (0-0); LYMPHOCYTES ABSOLUTE MAN 1.17 K/mm3 (0.84-5.20); LYMPHOCYTES PERCENT MAN 41 % (21-46); MONOCYTES PERCENT MAN 15 % (4-13); NEUTROPHILS ABSOLUTE MAN 1.11 K/mm3 (1.96-9.15); SEG NEUTROPHILS PERCENT MAN 38 % (41-73); TOTAL CELLS COUNTED 100
[2024-07-02 07:40] VITALS: BP 116/83
[2024-07-02 16:19] VITALS: BP 111/73
[2024-07-02] MEDS ORDERED: Pantoprazole Sodium 40 MG Tab PO SCH (18:00)
[2024-07-02] MEDS ORDERED: Sennosides 8.6 MG Tab PO SCH (21:00)
[2024-07-02 22:39] VITALS: BP 105/74
--- NOTE | 2024-07-03 03:49 | NUR ---
INSULATION HOSEMAN SUMMARY VSS. ALERT AND ORIENTED. COOPERATIVE WITH CARE. UP WITH ASSIST FROM RECLINER TO BED. IVF OF NS INFUSING AT 100 ML/HR. TOLERATING MEDS WELL, TAMIFLU FOR FLU. REMAINS ON DROPLET PRECAUTIONS FOR FLU. MD ORDERED ACTH STIM TEST FOR THE AM - SCHEDULED FOR 0800 AM. MED TELE SR IN THE 'S. HAS BEEN RESTING QUIETLY WITH FEW INTERRUPTIONS THROUGH NIGHT. CONTINENT. ABLE TO REPOSITION SELF IN BED WITHOUT ASSIST FOR COMFORT/SKIN MAINTENANCE. CALL LIGHT IN REACH, RAILS UP X 2 AND BED IN LOW POSITION FOR SAFETY. WILL CONTINUE TO MONITOR.
[2024-07-03 05:26] VITALS: BP 119/82
[2024-07-03 07:24] VITALS: BP 142/88
[2024-07-03] MEDS ORDERED: Cosyntropin 0.25 MG / ML 1ML Vial IV ONE (08:00)
[2024-07-03 08:20] LABS: Hemoglobin 14.1 g/dL (13.5-17.5); Mean Corpuscular HGB 31.4 pg (26.0-34.0); Mean Corpuscular HGB Conc 34.4 g/dL (31.5-36.5); Mean Corpuscular Volume 91 fL (80-100); Platelet Count 181 K/mm3 (150-400); RDW Coefficient Variation 12.1 % (11.7-14.2); RDW Standard Deviation 40.8 fL (35.1-46.3); Red Blood Cell Count 4.49 M/mm3 (4.30-5.90); White Blood Cell Count 2.84 K/mm3 (4.00-11.30)
[2024-07-03 08:44] LABS: Bun/Creatinine Ratio 10.8 (12.0-20.0); Calcium, Blood 8.6 mg/dL (8.5-10.1); Creatinine, Blood 1.11 mg/dL (0.60-1.20)
[2024-07-03] MEDS ORDERED: Polyethylene Glycol 3350 17 gm PO SCH (09:00)
[2024-07-03 09:09] LABS: BASOPHILS PERCENT MAN 0 % (0-2); EOSINOPHILS ABSOLUTE MAN 0.02 K/mm3 (0.00-0.68); EOSINOPHILS PERCENT MAN 1 % (0-6); LYMPHOCYTES % ATYPICAL MANUAL 10 % (0-0); LYMPHOCYTES ABSOLUTE MAN 1.76 K/mm3 (0.84-5.20); LYMPHOCYTES PERCENT MAN 52 % (21-46); METAMYELOCYTE ABSOLUTE MAN 0.02 K/mm3 (0.00-0.00); METAMYELOCYTE PERCENT MAN 1 % (0-0); MONOCYTES ABSOLUTE MAN 0.25 K/mm3 (0.16-1.47); MONOCYTES PERCENT MAN 9 % (4-13); NEUTROPHILS ABSOLUTE MAN 0.76 K/mm3 (1.96-9.15); SEG NEUTROPHILS PERCENT MAN 27 % (41-73); TOTAL CELLS COUNTED 100
[2024-07-03 15:48] VITALS: BP 109/64
--- NOTE | 2024-07-03 18:35 | NUR ---
PT A&OX4, VSS, RA, JUNCTIONAL RHYTHM IN 80S ON TELE, NO COMPLAINTS OF PAIN. IV ABX AND TAMIFLU CONTINUED. PT HAS FREQUENT PRODUCTIVE COUGH. 1 PERSON ASSIST TO CHAIR AND BSC. IN CHAIR MOST OF SHIFT. PLEASANT AND COOPERATIVE WITH CARE, ABLE TO MAKE NEED KNOWN, UP IN CHAIR, CALL LIGHT IN REACH.
[2024-07-03 19:38] VITALS: BP 110/85
[2024-07-04 03:15] VITALS: BP 92/58
--- NOTE | 2024-07-04 05:43 | NUR ---
SHIFT SUMMARY AT START OF SHIFT, PT SITTING UP IN HIS CHAIR, WATCHING TV. AFTER 2100 MED PASS, PT ASKED TO BE ASSISTED BACK TO BED FOR THE NIGHT. PT SAT UP WATCHING TV FOR APPROX 2 HOURS, THEN WENT TO SLEEP PEACEFULLY. PT SLEPT FOR DURATION OF SHIFT. PT HAS BEEN PLEASANT AND COOPERATIVE WITH HIS CARE.
[2024-07-04 07:27] VITALS: BP 98/64
[2024-07-04 09:38] LABS: Hematocrit 44.4 % (37.0-53.0); Hemoglobin 15.3 g/dL (13.5-17.5); Mean Corpuscular HGB 30.9 pg (26.0-34.0); Mean Corpuscular HGB Conc 34.5 g/dL (31.5-36.5); Mean Corpuscular Volume 90 fL (80-100); Mean Platelet Volume 8.9 fL (9.1-12.4); Platelet Count 235 K/mm3 (150-400); RDW Standard Deviation 39.7 fL (35.1-46.3); Red Blood Cell Count 4.95 M/mm3 (4.30-5.90); White Blood Cell Count 3.68 K/mm3 (4.00-11.30)
[2024-07-04 09:50] LABS: Bun/Creatinine Ratio 18.8 (12.0-20.0); Calcium, Blood 9.1 mg/dL (8.5-10.1); Creatinine, Blood 1.01 mg/dL (0.60-1.20); Potassium, Blood 3.9 mmol/L (3.5-5.5)
[2024-07-04] MEDS ORDERED: ACET500 PO (11:45)
[2024-07-04] MEDS ORDERED: MUCINEX600 MG PO (11:46)
[2024-07-04] MEDS ORDERED: ALBU90OI INH (11:46)
[2024-07-04] MEDS ORDERED: MIRALAX17 GM PO (11:46)
--- NOTE | 2024-07-04 15:39 | NUR ---
DISCHARGE SUMMARY PATIENT DISCHARGED HOME THIS SHIFT WITH HOME HEALTH REFERRAL. FRIEND TO DRIVE, FRIEND STATED THEY ARE VISITING PEOPLE WAITING IN THE ER AND JUST ASSIST HIM TO GET THERE AND SHE WOULD GET HIM TO THE CHAIR, THIS WAS DONE. IV REMOVED PRIOR WITHOUT COMPLICATION. DISCHARGE PACKET GIVEN AND REVIEWED, QUESTIONS ANSWERED, VERBALIZED UNDERSTANDING.
== END 2024-07-04 15:00 | disposition home health service (06) | DRG 872 ==
LOC: ER 16:36 → ERHOLD 16:37 → MEDS 16:38 → ERHOLD 06-30 12:04 → MEDS 06-30 12:04 → ERHOLD 07-01 11:15 → MEDS 07-01 22:48
PROVIDERS: Emergency Medicine; Internal Medicine; Nurse Practitioner Acute Care; ADMIT Internal Medicine
DX: A41.89 Other specified sepsis (principal); E27.49 Other adrenocortical insufficiency; E87.21 Acute metabolic acidosis; J10.89 Influenza due to other identified influenza virus with other manifestations; R55 Syncope and collapse; E86.0 Dehydration; Z88.5 Allergy status to narcotic agent; Z91.018 Allergy to other foods; R30.0 Dysuria; R53.1 Weakness; R10.9 Unspecified abdominal pain; Z87.19 Personal history of other diseases of the digestive system; Z96.642 Presence of left artificial hip joint; Z98.890 Other specified postprocedural states
CPT/HCPCS: 36415; 70450; 71046; 72125; 80048; 80053; 80400; 81001; 82330; 82533; 83605; 83735; 85025; 85027; 87040; 87077; 87086; 93005; 93010; 94640; 94664; 94760; 94762; 96361; 96365; 96372; 96374; 96375; 97112; 97116; 97161; 97530; 99285-25; A9270; G0378; J0696; J0834; J1650; J1885; J7030

== ENCOUNTER → 2025-02-09 | Outpatient (CLI) | payer OTHER ==
[~2025-02-09] MED LIST changes: +ACET500 PO; +ALBU90OI INH; +MIRALAX17 GM PO; +MUCINEX600 MG PO; +PSEU120ER PO
== END ==
LOC: LAB SHORT 14:17 → LAB 14:17
DX: R30.0 Dysuria (principal)
CPT/HCPCS: 87077; 87086; 87186

== ENCOUNTER → 2025-04-29 | Outpatient (CLI) | payer OTHER | LOC: LAB 17:51 → LAB SHORT 17:51 | DX: N39.0 Urinary tract infection, site not specified (principal) | CPT/HCPCS: 87077; 87086; 87186 ==

== ENCOUNTER 2025-05-18 18:09 | Emergency (ER) | payer OTHER ==
[~2025-05-18] VITALS: Ht 160 cm; Wt 52.6 kg
[2025-05-18] MEDS ORDERED: Ketorolac Tromethamine 15mg Vial IM ONE (20:05)
[2025-05-18 22:27] VITALS: BP 121/89
== END 2025-05-18 22:38 | disposition home or self-care (01) ==
LOC: ER 18:09
DX: S60.811A Abrasion of right wrist, initial encounter (principal); S89.91XA Unspecified injury of right lower leg, initial encounter; M25.551 Pain in right hip; W18.30XA Fall on same level, unspecified, initial encounter; M91.10 Juvenile osteochondrosis of head of femur [Legg-Calve-Perthes], unspecified leg
CPT/HCPCS: 72192; 73130; 73502; 73562-RT; 96372; 99284-25; A9270; J1885